=== PATIENT | female | born 1935 | race Caucasian/White ===

== ENCOUNTER 2017-03-07 14:33 | Emergency (ER) | payer OTHER ==
[2017-03-07 15:09] VITALS: TEMP 98.1; BMI 29.2
[2017-03-07] MEDS ORDERED: DIPHTH,PERTUSS(ACELL),TET VAC 0.5 ML VIAL IM ONE (15:27)
--- NOTE | 2017-03-07 15:27 | PDOC ---
History of Present Illness - General History Source: Patient Exam Limitations: No Limitations - History of Present Illness Initial Comments: 03/07/17 15:36 The patient is a 81 year old female, with a significant past medical history of hypertension and hyperlipidemia, who presents to the emergency department s/p mechanical fall earlier this afternoon. The patient reports she was on the sidewalk about to cross the street, when she slipped, fell, and scraped her face. The patient reports bleeding at the site where she scraped her nose. She does not report how long she was down for or how she was able to get up. The patient denies any LOC or changes in vision. The patient does not report any other signs of trauma. The patient denies any chest pain, shortness of breath, diaphoresis, or palpitations. The patient denies any fever, chills, headache, or dizziness. The patient denies any recent travel or sick contacts. Allergies: None Reported Past Surgical History: None reported Social History: Non-smoker. No ETOH or drug use <Rafael Reinoso - Last Filed: 03/07/17 16:24> <Rima Carter - Last Filed: 03/07/17 17:58> - General Chief Complaint: Injury Stated Complaint: FALL Time Seen by Provider: 03/07/17 14:52 Past History <Rafael Reinoso - Last Filed: 03/07/17 16:24> - Past Medical History HTN: Yes Hypercholesterolemia: Yes - Psycho/Social/Smoking Cessation Hx Anxiety: No Suicidal Ideation: No Smoking History: Never smoked Have you smoked in the past 12 months: No Information on smoking cessation initiated: No Hx Alcohol Use: No Drug/Substance Use Hx: No Substance Use Type: None <Rima Carter - Last Filed: 03/07/17 17:58> - Past Medical History Allergies/Adverse Reactions: Allergies Allergy/AdvReac Type Severity Reaction Status Date / Time No Known Allergies Allergy Verified 03/07/17 15:04 Home Medications: Ambulatory Orders Amox-Tr/K Cl [Augmentin - 875Mg Tablet] 1 tab PO BID #14 tablet 03/07/17 Review of Systems - Review of Systems Able to Perform ROS?: Yes Comments:: 03/07/17 15:36 GENERAL/CONSTITUTIONAL: Yes: +mechanical fall. No fever or chills. HEAD, EYES, EARS, NOSE AND THROAT: Yes: +scrape to the nose and forehead. No change in vision. No ear pain or discharge. No sore throat. CARDIOVASCULAR: No chest pain or shortness of breath. RESPIRATORY: No cough, wheezing, or hemoptysis. GASTROINTESTINAL: No nausea, vomiting, diarrhea or constipation. GENITOURINARY: No dysuria, frequency, or change in urination. MUSCULOSKELETAL: No joint or muscle swelling or pain. No neck or back pain. SKIN: Yes: +scrape to the nose and forehead. No rash NEUROLOGIC: No headache, vertigo, loss of consciousness, or change in strength/ sensation. ENDOCRINE: No increased thirst. No abnormal weight change. HEMATOLOGIC/LYMPHATIC: No anemia, easy bleeding, or history of blood clots. ALLERGIC/IMMUNOLOGIC: No hives or skin allergy. <Rafael Reinoso - Last Filed: 03/07/17 16:24> *Physical Exam - Vital Signs Last Vital Signs Temp Pulse Resp BP Pulse Ox 98.1 F 103 H 21 156/73 98 03/07/17 14:51 03/07/17 14:51 03/07/17 14:51 03/07/17 14:51 03/07/17 14:51 <Rafael Reinoso - Last Filed: 03/07/17 16:24> - Vital Signs Last Vital Signs Temp Pulse Resp BP Pulse Ox 98.1 F 103 H 21 156/73 98 03/07/17 14:51 03/07/17 14:51 03/07/17 14:51 03/07/17 14:51 03/07/17 14:51 - Physical Exam Comments: GENERAL: Awake, alert, and fully oriented, in no acute distress HEAD: +Large abrasion with skin avulsion to the nasal bridge. No active bleeding. No bony tenderness EYES: PERRLA, EOMI, sclera anicteric, conjunctiva clear ENT: Auricles normal inspection, hearing grossly normal, nares patent, oropharynx clear without exudates. Moist mucosa NECK: Normal ROM, supple, no lymphadenopathy, JVD, or masses EXTREMITIES: Normal range of motion, no edema. No clubbing or cyanosis. No cords, erythema, or tenderness NEUROLOGICAL: Cranial nerves II through XII grossly intact. Normal speech, normal gait SKIN: Warm, Dry, normal turgor. <Rima Carter - Last Filed: 03/07/17 17:58> ED Treatment Course - RADIOLOGY Radiograph Interpretation: 03/07/17 16:24 EXAM: X-Ray Nasal bones INTERPRETED BY: Dr. Graham REVIEWED BY: Dr. Carter IMPRESSION: Suboptimal examination. Questionable nondisplaced fracture at the tip of the nasal bones seen on the left lateral view. <Rafael Reinoso - Last Filed: 03/07/17 16:24> Medical Decision Making - Medical Decision Making 03/07/17 17:57 Pt's daughter at the bedside, arrived to pick her up. I explained the radiology findings, and that an antibiotic will be necessary to prevent infection in light of possible small fx. They gave me pharmacy information so I was able to transmit it. I also explained how to care for the wound as I did- xeroform, gauze, and tape. <Rima Carter - Last Filed: 03/07/17 17:58> *DC/Admit/Observation/Transfer - Attestations Scribe Attestion: 03/07/17 15:36 Documentation prepared by Rafael Reinoso, acting as medical psychotherapist for Rima Carter MD. <Rafael Reinoso - Last Filed: 03/07/17 16:24> - Discharge Dispostion Admit: No <Rima Carter - Last Filed: 03/07/17 17:58> Diagnosis at time of Disposition: Nose fracture Qualifiers: Encounter type: initial encounter Fracture type: open Qualified Code(s): S02.2XXB - Fracture of nasal bones, initial encounter for open fracture - Discharge Dispostion Disposition: HOME Condition at time of disposition: Stable - Prescriptions Prescriptions: Amox-Tr/K Cl [Augmentin - 875Mg Tablet] 1 tab PO BID #14 tablet - Referrals Referrals: Clive Rocha MD [Staff Physician] - - Patient Instructions Printed Discharge Instructions: DI for Nose Fracture
[2017-03-07 18:40] VITALS: BP 155/81; PULSE 99
== END 2017-03-07 17:50 | disposition home or self-care (01) ==
LOC: JER 14:33
PROC: 3E0234Z Introduction of Serum, Toxoid and Vaccine into Muscle, Percutaneous Approach (ICD-10-PCS; principal; 2017-03-07)
DX: S02.2XXA Fracture of nasal bones, initial encounter for closed fracture (principal); W01.198A Fall on same level from slipping, tripping and stumbling with subsequent striking against other object, initial encounter; Y93.01 Activity, walking, marching and hiking; Y92.480 Sidewalk as the place of occurrence of the external cause; I10 Essential (primary) hypertension; E78.5 Hyperlipidemia, unspecified
CPT/HCPCS: 70160-TC; 99281-25

== ENCOUNTER 2019-05-02 10:09 | Inpatient (IN) | payer OTHER | END 2019-05-06 11:36 | LOC: J5S 05-04 14:43 → JER 10:09 → J4W 05-03 17:32 → JERBED 14:13 ==

== ENCOUNTER 2019-07-30 09:50 | Inpatient (IN) | payer OTHER ==
[2019-07-30] MEDS ORDERED: ACETAMINOPHEN 1000 MG/100 ML VIAL (NON FORMULARY) IVPB ONE (10:21)
[2019-07-30] MEDS ORDERED: ACETAMINOPHEN INJECTION 100 ML IVPB ONE (10:56)
[2019-07-30 11:22] LABS: BASO % 0.3 % (0-2.0); HEMOGLOBIN 11.1 GM/dL (10.7-15.3); LYMPH % 5.4 % (8-40); MCH 31.8 pg (25.7-33.7); MCHC 33.5 g/dl (32.0-36.0); MEAN CELL VOLUME 94.7 fl (80-96); MEAN PLT VOLUME 9.6 fl (7.5-11.1); MONO % 17.2 % (3.8-10.2); NEUT % 77.1 % (42.8-82.8); PLATELET COUNT 87 K/MM3 (134-434); RBC 3.48 M/mm3 (3.60-5.2)
[2019-07-30 11:59] LABS: ALBUMIN 3.7 g/dl (3.4-5.0); BILIRUBIN,TOTAL 0.9 mg/dL (0.2-1); BLOOD UREA NITROGEN 9.8 mg/dL (7-18); CALCIUM 9.1 mg/dL (8.5-10.1); CREATININE 0.6 mg/dL (0.55-1.3); POTASSIUM 4.1 mmol/L (3.5-5.1); TOT PROT 8.4 g/dl (6.4-8.2)
[2019-07-30] MEDS ORDERED: morphine CARPU-JECT 4 MG/1 ML DISP.SYRIN IVPUSH ONE (12:13)
--- NOTE | 2019-07-30 12:18 | PDOC ---
Documentation entered by Manuel Merino SCRIBE, acting as scribe for Yandy Lawton MD. Yandy Lawton MD: This documentation has been prepared by the Angelique hernandez Xhesika, SCRIBE, under my direction and personally reviewed by me in its entirety. I confirm that the documentation accurately reflects all work, treatment, procedures, and medical decision making performed by me. History of Present Illness - General Chief Complaint: Injury Stated Complaint: FALL Time Seen by Provider: 07/30/19 10:04 History Source: Patient Exam Limitations: No Limitations - History of Present Illness Initial Comments: 07/30/19 10:22 The patient is a 84 year old female with a significant past medical history of cognitive decline, dementia and depression, DVT on coumadin? who presents to the ED BIBA with 10/10 L hip pain s/p fall at 12:00am, unable to move 2/2 pain. Patient notes she lives at home alone, was going to the bathroom and fell last night approx 12am. Patient denies hitting her head or LOC. per records, ASA 81 mg po daily. pt is DNR/DNI. coumadin information provided upon talking to daughter, Ms Donald). Patient denies numbness/tingling on legs and arms. Denies fever, chills, chest pain, SOB, palpitation, dizziness, weakness, N, V, D , abdominal pain, bladder and bowel problems, leg swelling, No sick contacts or travel. No new changes in medications. Allergies: None Past Medical History: as per HPI Social history: Lives alone at home. No tobacco, ETOH or drug use. Surgical history: hernia repair 2017 Meds: as documented in EMR PMD: Dr. Juárez 07/30/19 12:15 07/30/19 13:15 07/30/19 13:18 Past History - Past Medical History Allergies/Adverse Reactions: Allergies Allergy/AdvReac Type Severity Reaction Status Date / Time morphine Allergy Itching Verified 07/30/19 12:56 Home Medications: Ambulatory Orders Escitalopram Oxalate [Lexapro -] 10 mg PO HS 05/02/19 Acetaminophen [Tylenol .Regular Strength -] 650 mg PO Q4H PRN tablet 05/06/19 Aspirin [ASA -] 81 mg PO DAILY #0 tab.chew 05/06/19 COPD: No Dementia: Yes HTN: Yes Hypercholesterolemia: Yes - Psycho Social/Smoking Cessation Hx Smoking History: Unknown if ever smoked Have you smoked in the past 12 months: No If you are a former smoker, when did you quit?: 30years ago Information on smoking cessation initiated: No Hx Alcohol Use: No Drug/Substance Use Hx: No Substance Use Type: None Hx Substance Use Treatment: No Review of Systems - Review of Systems Able to Perform ROS?: Yes Comments:: 07/30/19 10:25 Constitutional: no fevers or chills. No weakness HEENT: no headache or dizziness. No congestion. No visual/hearing disturbances. CVS: no cp or syncope. Resp: no sob. No cough. Gastrointestinal: no abdominal pain, nausea, vomiting, diarrhea. Genitourinary: no urinary sx, hematuria. MUSCULOSKELETAL: +L hip pain. No joint swelling. No neck or back pain. SKIN: no redness or skin changes, no discharge, no rash. No wounds. Hematologic: no easy bruising/bleeding. NEUROLOGIC: No headache, dizziness, LOC or altered mental status. No weakness, numbness or tingling. Psych: no anxiety or depression Allergic/Immunologic: no allergies All other systems reviewed and negative, or as documented in HPI. *Physical Exam - Vital Signs Last Vital Signs Temp Pulse Resp BP Pulse Ox 97.4 F L 77 16 167/68 100 07/30/19 09:55 07/30/19 09:55 07/30/19 09:55 07/30/19 09:55 07/30/19 09:55 - Physical Exam Comments: 07/30/19 10:23 General: GCS 15 NAD HEENT: NCAT, PERRL, EOMI. Airway intact. No battles sign or raccoon eyes. No e/ o ocular. Dentition intact. No e/o septal hematoma, nasal bridge stable. Neck: neck supple, no midline C spine tenderness or deformity, ROM intact. No anterior mass or crepitus, trachea midline. Resp: Lungs clear bilaterally Chest: no clavicle or chest wall tenderness or crepitus CVS: RRR, 2+ pulses throughout. Abdomen: Abdomen soft, nontender, nondistended. Back: Back nontender, no midline spinal tenderness along cervical/thoracic/ lumbar spine, FROM, no stepoffs. MSK: +left lower extremity externally shortened and rotated. very tender to palp over left lateral/anterior hip, ROM limited 2/2 pain. Neuro: Alert, oriented appropriately. slow mentation/speech. no focal neuro deficits. Sensation and strength intact throughout. Skin: intact, normal color and well perfused. 07/30/19 12:16 Heart Score/ECG Review #1 ECG reviewed & interpreted by me at: 11:45 General ECG Interpretation: Sinus Rhythm, Normal Rate, Normal Intervals Compared to previous ECG there are: No significant change ED Treatment Course - LABORATORY CBC & Chemistry Diagram: 07/30/19 10:45 07/30/19 10:45 - ADDITIONAL ORDERS Additional order review: Laboratory Results 07/30/19 07/30/19 10:45 10:45 Sodium 137 Potassium 4.1 Chloride 101 Carbon Dioxide 28 Anion Gap 9 BUN 9.8 Creatinine 0.6 Est GFR (CKD-EPI)AfAm 98.38 Est GFR (CKD-EPI)NonAf 84.88 Random Glucose 155 H Calcium 9.1 Total Bilirubin 0.9 AST 26 ALT 15 Alkaline Phosphatase 82 Creatine Kinase 456 H Troponin I < 0.02 Total Protein 8.4 H Albumin 3.7 07/30/19 10:45 RBC 3.48 L MCV 94.7 MCHC 33.5 RDW 17.0 H MPV 9.6 Neutrophils % 77.1 D Lymphocytes % 5.4 L D Monocytes % 17.2 H Eosinophils % 0.0 D Basophils % 0.3 - RADIOLOGY Radiology Studies Ordered: Category Date Time Status CERVICAL SPINE CT W/O CONTR [CT] Stat CT Scan 07/30/19 10:[address] WITHOUT CONTRAST [CT] Stat CT Scan 07/30/19 10:17 Ordered CHEST X-RAY PORTABLE* [RAD] Stat Radiology 07/30/19 10:18 Completed HIP & PELVIS-LEFT [RAD] Stat Radiology 07/30/19 10:20 Completed - Medications Given in the ED: ED Medications Discontinued Medications Generic Name Dose Route Start Last Admin Trade Name Freq PRN Reason Stop Dose Admin Acetaminophen 1,000 mg 07/30/19 10:21 07/30/19 11:15 Ofirmev Injection - IVPB 07/30/19 10:22 1,000 mg ONCE ONE Administration ED Progress Note - Progress Note Progress Note: 07/30/19 12:58 Pt admitted to hospitalist under Dr. norris. Spoke with MARIANO Nova (Dr. Frias office), discussed plan and he will come see the patient. Medical Decision Making - Medical Decision Making 07/30/19 12:17 Vital Signs Temp Pulse Resp BP Pulse Ox 97.4 F L 77 16 167/68 100 07/30/19 09:55 07/30/19 09:55 07/30/19 09:55 07/30/19 09:55 07/30/19 09:55 Patient after unwitnessed fall last night, clinically has a left hip fracture. X-rays confirmed left intertrochanteric fracture. Neurovascularly intact. Will call orthopedics on-call Dr. Ledesma/Rodriguez. Admit to hospitalist for medical/operative management. Analgesia given here, will offer patient femoral nerve block for additional analgesia given she could have risks of delirium with her cognitive decline/dementia. Will consult the daughter and make a phone call out. 07/30/19 13:31- pt has allergy to morphine, gets flushed and itchy/rash. - ramirez placed, UA/culture sent to check for infection daughter Arleen Donald updated. apparently pt is on ASA and coumadin, for ?DVT. prior records reviewed from April 2019 - only asa and antidepressants at that time, when she was admitted for encephalopathy/dementia. INR 3.48. no femoral block as risk of bleeding given AC use. [facility] to [facility] team accepted and s/o Dr Palencia. ortho cs with Dr Ledesma/Rodriguez, information passed to Alfonso Nova 07/30/19 14:49 Discharge - Discharge Information Problems reviewed: Yes Clinical Impression/Diagnosis: Intertrochanteric fracture of left hip Qualifiers: Encounter type: initial encounter Fracture type: closed Fracture alignment: displaced Qualified Code(s): S72.142A - Displaced intertrochanteric fracture of left femur, initial encounter for closed fracture Fall Qualifiers: Encounter type: initial encounter Qualified Code(s): W19.XXXA - Unspecified fall, initial encounter Condition: Fair - Admission Yes - Follow up/Referral - Patient Discharge Instructions - Post Discharge Activity
[2019-07-30] MEDS ORDERED: morphine SULFATE 4 MG/ML VIAL ONE (12:43)
--- NOTE | 2019-07-30 13:09 | HP ---
<Clive Landon - Last Filed: 07/31/19 00:25> CHIEF COMPLAINT: Hip Pain PCP: Dr. Juárez HISTORY OF PRESENT ILLNESS: 84yo F with h/o cognitive decline and severe dementia, depression, DVT ( May 2019) on Coumadin who presents today after unwitnessed fall with high suspicion for mechanical etiology. Pt was brought in by ambulance and found on the floor when aide showed up for her regularly scheduled hours. Unknown amount of time on the floor. HPI is limited due to pt's clinical condition, but spoke to aide at bedside who reports pt seems to be at her baseline mentation. Pt reports pain near L leg with localization in groin. Aide reports pt is partially dependent at home. Spoke with daughter (Fatemeh [phone]) who confirmed updated list and who reports pt is usually kept with minimal assist for ADLs. HPI limited due to pt's historic conditions. 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 Noncontributory. Allergies morphine Allergy (Verified 07/30/19 12:56) Itching HOME MEDICATIONS: Home Medications Medication Instructions Recorded Escitalopram Oxalate [Lexapro -] 10 mg PO HS 05/02/19 Acetaminophen [Tylenol .Regular 650 mg PO Q4H PRN tablet 05/06/19 Strength -] Aspirin [ASA -] 81 mg PO DAILY #0 tab.chew 05/06/19 REVIEW OF SYSTEMS Limited due to clinical conditions; see HPI PHYSICAL EXAMINATION Vital Signs - 24 hr 07/30/19 09:55 Temperature 97.4 F L Pulse Rate 77 Respiratory 16 Rate Blood Pressure 167/68 O2 Sat by Pulse 100 Oximetry (%) GENERAL: Awake, alert, oriented to self only, has to be prompted for response HEENT: Nc/AT, FIFI, sclera anicteric, masked facies, dry mucosa LUNGS: Diminished breath sounds at bases b/l. No wheezes, and no crackles. No accessory muscle use. HEART: RRR, normal S1 and S2 without murmur ABDOMEN: Soft, NT/ND, normoactive bowel sounds, no guarding MUSCULOSKELETAL: Externally rotated left leg with notable leg-length discrepancy , aROM of foot intact LOWER EXTREMITIES: 2+ DP pulses b/l, warm, well-perfused. No calf tenderness. No peripheral edema. NEUROLOGICAL: Limited due to pt's clinical status. PSYCHIATRIC: Cooperative. Good eye contact. Appropriate mood and affect. SKIN: Warm, dry, normal turgor, no rashes or lesions noted, normal capillary refill. Laboratory Results - last 24 hr 07/30/19 07/30/19 07/30/19 10:45 10:45 10:45 WBC 12.0 H RBC 3.48 L Hgb 11.1 Hct 33.0 D MCV 94.7 MCH 31.8 MCHC 33.5 RDW 17.0 H Plt Count 87 L D MPV 9.6 Absolute Neuts (auto) 9.3 H Neutrophils % 77.1 D Lymphocytes % 5.4 L D Monocytes % 17.2 H Eosinophils % 0.0 D Basophils % 0.3 Nucleated RBC % 0 Sodium Potassium Chloride Carbon Dioxide Anion Gap BUN Creatinine Est GFR (CKD-EPI)AfAm Est GFR (CKD-EPI)NonAf Random Glucose Calcium Total Bilirubin AST ALT Alkaline Phosphatase Creatine Kinase 456 H Creatine Kinase Index 1.1 CK-MB (CK-2) 5.4 H Troponin I < 0.02 Total Protein Albumin Blood Type O NEGATIVE Antibody Screen Negative 07/30/19 10:45 WBC RBC Hgb Hct MCV MCH MCHC RDW Plt Count MPV Absolute Neuts (auto) Neutrophils % Lymphocytes % Monocytes % Eosinophils % Basophils % Nucleated RBC % Sodium 137 Potassium 4.1 Chloride 101 Carbon Dioxide 28 Anion Gap 9 BUN 9.8 Creatinine 0.6 Est GFR (CKD-EPI)AfAm 98.38 Est GFR (CKD-EPI)NonAf 84.88 Random Glucose 155 H Calcium 9.1 Total Bilirubin 0.9 AST 26 ALT 15 Alkaline Phosphatase 82 Creatine Kinase Creatine Kinase Index CK-MB (CK-2) Troponin I Total Protein 8.4 H Albumin 3.7 Blood Type Antibody Screen ASSESSMENT/PLAN: L intertrochanteric hip fracture DVT on anticoagulation Supratherapeutic INR Rhabdomyolysis Thrombocytopenia Leukocytosis Severe dementia leading to cognitive decline Depression --Unwitnessed fall leading to intertrochanteric hip fracture --Orthopedic surgery on board; will need repair, however will need optimization and decrease of INR <1.4 for pt's surgery --Pain control (allergy to morphine unclear via funeral home director); distal nerve block initially vs. Tylenol 1gm QID PRN --Pt supratherapeutic INR: trend INRs and surgery to be performed with INR <1.4 --Due to ongoing DVT will have to use Heparin gtt if pt becomes below goal prematurely; will have to stop 6 hours prior to surgery --Monitor for bleeding and hematoma formation --If not diminishing may have to supplement with vitamin K, however must weigh risk given already coagulopathy present --Surgical optimization: Diaz score 1.6% MANNY RCR score 3.9 - 6.0% Mod-high risk patient for moderate risk procedure based on Mets and surgical procedure --Will obtain A1c with routine labs --Type and screen --CXR reviewed --ECG reviewed; echocardiogram ordered --Thrombocytopenia with possible consumption --Leukocytosis suspected to be reactive --Continue Lexapro home dose FEN: Fluids: LR@83cc/hr due to pt frailty Electrolyte abnormalities: None Nutrition: Speech and swallow and advance per recommendations PPX: DVT - Supratherapeutic INR GI - Not indicated Dispo: monitor M/S admit Case discussed with Dr. Dilip Landon, DO - IM PGY-3 Visit type - Emergency Visit Emergency Visit: Yes ED Registration Date: 07/30/19 Care time: The patient presented to the Emergency Department on the above date and was hospitalized for further evaluation of their emergent condition. - New Patient This patient is new to me today: Yes Date on this admission: 07/30/19 - Critical Care Critical Care patient: No ATTENDING PHYSICIAN STATEMENT I saw and evaluated the patient. I reviewed the resident's note and discussed the case with the resident. I agree with the resident's findings and plan as documented. SUBJECTIVE: OBJECTIVE: ASSESSMENT AND PLAN: <Obed Cherry - Last Filed: 07/31/19 07:59> Seen and examined; please refer to resident note for additional discussion. Independently reviewed all labs, imaging, and diagnositcs and verified historical and PE findings. I agree with the assessment and plan as documented above aside from as supplemented by myself. Presents following mechanical fall resulting in IC hip fx confirmed on XR done in ER; pain control being done with US guided nerve block but ST INR just confirmed so ER is in process of reevaluating-will FU. She has likely underlying neuro disorder (parkinsons vs. alzheimers vs. corticobasilar degeneration?) and will discuss with neuro; recent MRI and consult noted. Dysarthria, rigidity, cogwheeling noted on exam. 10 sys ROS done and negative aside from HPI NAD, AAO, resting in bed NC AT PERRLA Hip painful to palpation over trochanteric region with external rotation and shortening relative to contralateral side noted NT ND +BS Muscle rigidity RUE>LUE with some cogwheeling noted. Dysarthric speech pattern. Gait not observed. Normal mood, flat affect HR wnl, s1/2 noted Neck without lymphadenopathy, trachea midline Skin without rashes or breakdown EKG, XR noted Old MRI study noted Old Neurology consultation noted ASSESSMENT/PLAN: Patient presents for intertrochanteric hip fracture due to mechanical fall; I am concerned about her underlying neurological condition that may have contributed to a gait distubance with concurring dysarthria, rigidity, etc. Orthopedic consult and neuro consult pending. Will work to control pain. -Intertrochanteric Hip Fracture *Dr. Ledesma consulted; followup regarding pain control and operative planning. FU INR in AM. 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 OP followup with DEXA, vitamin D, etc. -Mechanical Fall *Likely related to underlying neurological condition -Hx DVT on warfarin -Elevated CPK *Not at rhabdo levels but did have fall with elevated time on ground. Closely monitor CPK and renal function along with Is and Os. -Thrombocytopenia *Trend; check HCV Ab and HIV and consider hematology consult -Dementia *She likely cannot consent for procedure and this should be done with her HCP Full Code ATTENDING PHYSICIAN STATEMENT I saw and evaluated the patient. I reviewed the resident's note and discussed the case with the resident. I agree with the resident's findings and plan as documented. SUBJECTIVE: OBJECTIVE: ASSESSMENT AND PLAN:
[2019-07-30] MEDS: LACTATED RINGERS SOLUTION 1,000 ML/1,000 ML INFUS.BAG IV SCH (13:50)
[2019-07-30 14:12] LABS: EPI CELLS 0.8 /HPF (0-5/HPF); HYALINE CASTS 3 /lpf (0-8); PH,URINE 6.5 (5.0-8.0); URINE APPEARANCE CLOUDY; URINE BILIRUBIN NEGATIVE (NEGATIVE); URINE COLOR YELLOW; URINE GLUCOSE (UA) NEGATIVE (NEGATIVE); URINE KETONE NEGATIVE (NEGATIVE); URINE LEUK ESTERASE 1+ (NEGATIVE); URINE NITRITE NEGATIVE (NEGATIVE); URINE PROTEIN 1+ (NEGATIVE); URINE UROBILINOGEN 0.2 mg/dL (0.2-1.0); URINE WBC 151 /hpf (0-5)
--- NOTE | 2019-07-30 14:19 | EKG ---
Test Reason : Blood Pressure : / mmHG Vent. Rate : 075 BPM Atrial Rate : 075 BPM P-R Int : 156 ms QRS Dur : 062 ms QT Int : 396 ms P-R-T Axes : 057 052 076 degrees QTc Int : 442 ms POOR DATA QUALITY, INTERPRETATION MAY BE ADVERSELY AFFECTED NORMAL SINUS RHYTHM EARLY REPOLARIZATION WHEN COMPARED WITH ECG OF 02-MAY-2019 10:13, NO SIGNIFICANT CHANGE WAS FOUND Confirmed by LULA MOON MD ([id number]) on 07/30/2019 2:19:13 PM Referred By: Confirmed By:LULA MOON MD
[2019-07-30 14:34] LABS: INR 3.84 (0.83-1.09); PROTHROMBIN TIME (PATIENT) 45.9 SEC (9.7-13.0)
[2019-07-30 14:36] LABS: ACTIVATED PTT 61.2 SECONDS (25.2-36.5)
--- NOTE | 2019-07-30 15:00 | CON.ORTH ---
Consult Reason for Consultation:: left hip fx - Alcohol/Substance Use Hx Alcohol Use: No - Smoking History Smoking history: Unknown if ever smoked Have you smoked in the past 12 months: No If you are a former smoker, when did you quit?: 30years ago Home Medications - Allergies Allergies/Adverse Reactions: Allergies Allergy/AdvReac Type Severity Reaction Status Date / Time morphine Allergy Itching Verified 07/30/19 12:56 - Home Medications Home Medications: Ambulatory Orders Escitalopram Oxalate [Lexapro -] 10 mg PO HS 05/02/19 Acetaminophen [Tylenol .Regular Strength -] 650 mg PO Q4H PRN tablet 05/06/19 Aspirin [ASA -] 81 mg PO DAILY #0 tab.chew 05/06/19 Ascorbate Calcium [Vitamin C] 500 mg PO DAILY 07/30/19 Physical Exam for Ortho Vital Signs: Vital Signs Temperature 97.4 F L 07/30/19 09:55 Pulse Rate 76 07/30/19 13:20 Respiratory Rate 20 07/30/19 13:20 Blood Pressure 144/62 07/30/19 13:20 O2 Sat by Pulse Oximetry (%) 98 07/30/19 13:20 Labs: CBC, BMP 07/30/19 10:45 07/30/19 10:45 INR, PTT INR 3.84 (0.83-1.09) H 07/30/19 13:30 - Lower Extremity Hip: Yes: Left, Decreased ROM, Leg Externally Rotated, Leg Shortened, Pain, Swelling, Other (nvi) Imaging - Results X-ray: Image Reviewed Assessment/Plan 84 year old female with a significant past medical history of cognitive decline , dementia and depression, DVT on coumadin? who presents to the ED BIBA with 10 /10 L hip pain s/p fall at 12:00am, unable to move 2/2 pain. Patient notes she lives at home alone, was going to the bathroom and fell last night approx 12am. Patient denies hitting her head or LOC. per records, ASA 81 mg po daily. pt is DNR/DNI. coumadin information provided upon talking to daughter, Ms Donald). Currently pts INR is 3.84. Pt has prior h/o of dvt in May 2019. a/p left displaced IT fx Risks and benefits were d/w pt and her daughter Will need left IM gamma nail once INR to 1.4, and surgically cleared hold coumadin AC as per med/cardio OR once INR stabilized and medically cleared, earliest would be Friday d/w Dr. Frias
[2019-07-30 15:02] LABS: MAGNESIUM 1.8 mg/dL (1.8-2.4)
[2019-07-30 15:18] LABS: URINE RBC 7 /hpf (0-4); YEAST NONE SEEN (NEGATIVE)
[2019-07-30 15:41] VITALS: BMI 25.0
--- NOTE | 2019-07-30 16:40 | ECHO ---
Name: EFREM MORIN Exam:Adult Echocardiogram Study Date: 07/30/2019 02:09 PM Age: 84 yrs Height: 61 in Weight: 136 lb BSA: 1.6 m2 MMode/2D Measurements & Calculations IVSd: 0.73 cm Ao root diam: 2.1 cm LVIDd: 2.9 cm LA dimension: 2.7 cm LVIDs: 2.1 cm LVPWd: 0.64 cm EDV(Teich): 33.2 ml LVOT diam: 1.9 cm ESV(Teich): 14.9 ml RV S Parish: 10.0 cm/sec Doppler Measurements & Calculations MV E max pairsh: 75.7 cm/sec Ao V2 max: 150.9 cm/sec MV A max parish: 138.7 cm/sec Ao max P.1 mmHg MV E/A: 0.55 MV dec time: 0.22 sec RASHAD(V,D): 2.6 cm2 LV V1 max P.1 mmHg TR max parish: 234.1 cm/sec LV V1 max: 133.3 cm/sec TR max P.0 mmHg Med Peak E' Parish: 6.1 cm/sec Med E/e': 12.3 Lat Peak E' Parish: 6.3 cm/sec Lat E/e': 11.9 Left Ventricle Left ventricular systolic function is normal. Ejection Fraction = 55-60%. The transmitral spectral Do ppler flow pattern is suggestive of impaired LV relaxation. Right Ventricle The right ventricle is normal in size and function. Atria The left atrium is mildly dilated. Right atrial size is normal. Mitral Valve There is moderate mitral annular calcification. There is no mitral valve stenosis. There is no mitral regurgitation noted. Tricuspid Valve The tricuspid valve is normal in structure and function. There is mild tricuspid regurgitation. Aortic Valve There is mild to moderate aortic sclerosis.;. No hemodynamically significant valvular aortic stenosis . No aortic regurgitation is present. Pulmonic Valve The pulmonic valve is not well seen, but is grossly normal. There is no pulmonic valvular stenosis. Great Vessels The aortic root is normal size. Pericardium/Pleura There is no pericardial effusion. Interpretation Summary Left ventricular systolic function is normal. Ejection Fraction = 55-60%. The transmitral spectral Doppler flow pattern is suggestive of impaired LV relaxation. The right ventricle is normal in size and function. The left atrium is mildly dilated. There is moderate mitral annular calcification. There is mild tricuspid regurgitation. There is mild to moderate aortic sclerosis.; No hemodynamically significant valvular aortic stenosis. There is no pericardial effusion. MD Terence Ochoa 07/30/2019 04:40 PM
--- NOTE | 2019-07-30 16:45 | CONSULT ---
Admitting History and Physical - Past Medical History ...: No - Smoking History Smoking history: Former smoker Have you smoked in the past 12 months: No If you are a former smoker, when did you quit?: 30years ago - Alcohol/Substance Use Hx Alcohol Use: No History - Admission Reason For Visit: INTERTROCHANTERIC FRACTURE OF LEFT FEMUR - Hearing Hearing: Normal Speech Evaluation - Communication Primary Language: KHMER Secondary Language: GHANAIAN Communication: Yes: Simple Responses, Language Barrier Oral Expression Ability: Yes: Mild Impairment - Speech Production Dysarthria: Yes: Flaccid Apraxia: No Able to Make Needs Known: Yes: Mildly Impaired Intelligibility: Yes: Mildly Impaired (slow halting speech) - Speech Characteristics Voice Loudness: Mildly Soft/Quiet Voice Pitch: Yes: Limited Variation Voice Phonatory-based Quality: Yes: Normal Speech Pattern: Impaired (slow rate of speech in Arabic) Articulation: Yes: Precise Rate of Speech: Too Slow Voice, Other Observations: Yes: Mouth Breathing Voice Comment: Vocal quality is functional for the environment with speech parameters WNL. - Language/Auditory Comprehension Follows: Yes: 1 Stage Simple Commands (WFL) Observation: Able to respond to yes/no queries: Yes, Yes/No Confusion: No, Comprehends Conversational Speech: Yes, Benefits from Slow Speech: Yes, Benefits from Repetiton: Yes, Benefits from Increased Volume of Speech: Yes - Language/Verbal Expression Able to Respond to Simple Queries: Yes: WNL Able to Communicate Wants and Needs: Yes: Mildly Impaired (language barrier) Functional Communication Status: Yes: Mildly Impaired Aware of Errors: Yes Attempts to Correct Errors: Yes Use of Gestures: Yes Written Expression: Not examined Oral Expression: WFL but slow rate Reading Comprehension: Not examined Calculations: Not examined Attention: Yes: Minimal Impairment - Memory/Perception skilled nursing Memory: Yes: Mildly Impaired Short Term Memory: Yes: WNL - Swallow Evaluation/Bedside Assessment Current Nutritional Intake: NPO (pending swallow eval) Oral Secretions: Yes: WFL Tracheostomy Present: No Patient on Ventilator: No Dentition: Yes: Edentulous, Missing Teeth Facial Symmetry at Rest: Symmetrical Facial Symmetry on Retraction: Symmetrical Facial Movement: Controlled Sensation: Normal Facial Comment: features are WFL for speech and swallowing Jaw Position: Open at Rest Against Resistance Opening: Normal Against Resistance Closing: Normal Pucker Lips: Normal Lips, Comment: features are WFL for speech and swallowing Lingual Movement: Reduced Tip Elevation, Reduced Protrusion Lingual Speed of Movement: Reduced Lingual Movement Strgth Against Opposition: Normal Lingual Movement Characteristics: Normal Lingual Comment: Slow movement but features are WFL for speech and swallowing Soft Palate Description: Normal Color Hard Palate Description: Normal Color Bite Reflex: Present Velopharyngeal Movement: Normal Laryngeal Elevation: WFL Laryngeal Movement: Able to Palpate Needs Assistance: Yes Rate of Intake: Slow/Holding Bolus Size: Small Sensation: Bite Reflex Labial Seal: WFL Chewing: Impaired Oral Prep Time: Increased A-P Transit: WFL Pocketing: None Timing of Swallow: Delayed (2-3 second) Coughing/Throat Clear: No Change in Voice: No Other Findings/Remarks: 84 yo female seen for swallow eval to r/o dysphagia. Daughters present for this session and provided encouragement to complete the swallow evaluation. Pt is verbal (both Sami and Arabic), A&Ox2, somewhat cooperative. PMHX includes advance dementia, depression, DVT. Admitted to [facility] for left hip pain secondary to fall at home. ART HISTORY PROFESSOR unable to formally evaluate oral / facial structure secondary to altered mental status, advanced dementia, Informal assessment of the oral / facial features appears within functional limits for speech and swallowing purposes. Current diet: NPO Pt given PO trials of pureed, soft regular solids with assistance revealed, reduced acceptance, delayed bolus formation increased mastication time and adequate A P transport. Pharyngeal swallows are delayed 2-4 seconds average No change in voicing or respiration after the swallow. Pt given PO trials of ice chips via spoon, thin liquids via cup and straw with total assistance revealed good acceptance, adequate labial containment / bolus control and, A P transport. Pharyngeal swallows are delayed 2-4 seconds average No change in voicing or respiration after the swallow. Recommendations - Speech Evaluation, Impression/Plan Impression: 84 yo female presents with mild to moderate amanda-pharyngeal dysphagia for soft regular solids with thin liquids. No evidence of aspiration observed with any consistency given at this time. Speech rate is delayed but is functional for her environment. Assisted Goals: Tolerate the least restrictive solid and liquid consistencies without s/s of penetration / aspiration. Short Term Goals: Tolerate purees and soft regular solid and thin liquid consistencies without s/s of penetration / aspiration. - Dysphagia Impressions/Plan Swallowing Skills: Impaired Dysphagia Impressions: Moderate Impairment, Risk of Aspiration *Silent aspiration: cannot be R/O at bedside Dysphagia Treatment Plan: Small Bites, Safe Rate, 1/2 tsp. at a time, Elevate HOB during feed, OOB for 1 h. after meals Dysphagia Evaluation Summary: : Continue po intake of soft regular solids with thin liquids at tolerated. Observe standard aspiration precautions. Provide oral care before and after meals. Provide oral care after meal. Medication can be given crushed with applesauce. Results given verbally to ore charger and PCP via chart. ART HISTORY PROFESSOR to follow up for diet tolerance. - Recommendations Diet Consistency: Regular, 1 - 2 Soft Items Medication Administration: Crushed with applesauce Liquids: Thin Liquids
--- NOTE | 2019-07-30 18:24 | CONSULT ---
Consult - text type - Consultation Consultation Note: NEUROLOGY CONSULTATION GREATLY APPRECIATED: Events reviewed. Pt examined with daughter at bedside who presents excellent history. This 84 yo RH woman lives alone. On Coumadin for prior history of DVT. INR= 3.84 8 year history of neurological decline, characterized by memory loss, prominent gait dysfunction (with tendency to fall backwards) and staring. Was in NH for UTI, now home with health aide 4 hours M-F. Walks with walker and assist. Daughter notes intermittent tremors in past. Admitted after fall with L hip fracture. For ORIF. Labs sig for WBC= 12K and Urine WBC= 131. BLANQUITA: No bruit. No head trauma. Cor reg. Neg Rikki's. L leg externally rotated and foreshortened (almost 3 cm) NEURO: Awake, alert, twisting her bedclothes. OX to "[facility]" 1919. But recalls "[facility]" and 2019 at 2 min. Dysarthric speech. Prominent glabella, snout, suck, grasps and palmomentals. CNII-CNXII: Prominent stare. Markedly reduced blink rate (3-4/min). No vertical EOM. No horizontal saccade. Pupils 4mm and reactive. Corneals +/+. Full vertical and horizontal movements with Doll's Head Maneuver. Reduced tongue mvts and gag. Motor: Diffusely rigid with cogwheeling. Markedly reduced PRISCILA's. Normal reflexes. Coordination: No obvious dystaxia. Sensation: Feels vibration and pin throughout. 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 Maybe worsened by Toxic-Metabolic Factors (UTI) Suggest: Antibiotics for UTI prior to ORIF Sequential compression stockings vs. DVT Consider heme consult and Vit K to reverse coumadin Aggressive bedside PT after ORIF. Possible levodopa trial post op. Feed cautiously while seated upright and observed. Thank you very much, Fabio Davis MD
[2019-07-30] MEDS: ESCITALOPRAM OXALATE 10 MG TABLET (FP) PO SCH (23:18)
--- NOTE | 2019-07-31 07:45 | PN ---
Physical Exam: SUBJECTIVE: Patient seen and examined; no new complaints. Hemodynamically stable and pain is controlled. recommendations noted. Appreciate expert care from subspecialty teams. No chest pain, SOB noted. Pending sgy. 10 sys ROS done and negative aside from HPI OBJECTIVE: Vital Signs Period Temp Pulse Resp BP Sys/Pierce Pulse Ox Last 24 Hr 97.4 F-98.2 F 74-81 16-20 127-167/58-80 98-100 GENERAL: The patient is awake, alert, and fully oriented, in no acute distress. HEAD: Normal with no signs of trauma. EYES: PERRL, extraocular movements intact, sclera anicteric, conjunctiva clear. No ptosis. ENT: Ears normal, nares patent, oropharynx clear without exudates, moist mucous membranes. NECK: Trachea midline, full range of motion, supple. LUNGS: Breath sounds equal, clear to auscultation bilaterally, no wheezes, no crackles, no accessory muscle use. HEART: Regular rate and rhythm, S1, S2 without murmur, rub or gallop. ABDOMEN: Soft, nontender, nondistended, normoactive bowel sounds, no guarding, no rebound, no hepatosplenomegaly, no masses. EXTREMITIES: 2+ pulses, warm, well-perfused, no edema. Neurovascularly intact on indicated extremity NEUROLOGICAL: Cranial nerves II through XII unchanged from prior exam. Dysarthric speech, gait not observed. Increased tone with cogwheeling. PSYCH: Normal mood, normal affect. SKIN: Warm, dry, normal turgor, no rashes or lesions noted Laboratory Results - last 24 hr 07/30/19 07/30/19 07/30/19 10:45 10:45 10:45 WBC 12.0 H RBC 3.48 L Hgb 11.1 Hct 33.0 D MCV 94.7 MCH 31.8 MCHC 33.5 RDW 17.0 H Plt Count 87 L D MPV 9.6 Absolute Neuts (auto) 9.3 H Neutrophils % 77.1 D Lymphocytes % 5.4 L D Monocytes % 17.2 H Eosinophils % 0.0 D Basophils % 0.3 Nucleated RBC % 0 ESR PT with INR INR PTT (Actin FS) Sodium Potassium Chloride Carbon Dioxide Anion Gap BUN Creatinine Est GFR (CKD-EPI)AfAm Est GFR (CKD-EPI)NonAf Random Glucose Hemoglobin A1c % Calcium Magnesium Total Bilirubin AST ALT Alkaline Phosphatase Ammonia Creatine Kinase 456 H Creatine Kinase Index 1.1 CK-MB (CK-2) 5.4 H Troponin I < 0.02 C-Reactive Protein Total Protein Albumin Vitamin B12 Serum Folate TSH Urine Color Urine Appearance Urine pH Ur Specific [place] Urine Protein Urine Glucose (UA) Urine Ketones Urine Blood Urine Nitrite Urine Bilirubin Urine Urobilinogen Ur Leukocyte Esterase Urine WBC (Auto) Urine RBC (Auto) Urine Casts (Auto) U Epithel Cells (Auto) Urine Bacteria (Auto) Urine Yeast (Auto) RPR Titer Blood Type O NEGATIVE Antibody Screen Negative 07/30/19 07/30/19 07/30/19 10:45 13:30 13:30 WBC RBC Hgb Hct MCV MCH MCHC RDW Plt Count MPV Absolute Neuts (auto) Neutrophils % Lymphocytes % Monocytes % Eosinophils % Basophils % Nucleated RBC % ESR PT with INR INR PTT (Actin FS) Sodium 137 Potassium 4.1 Chloride 101 Carbon Dioxide 28 Anion Gap 9 BUN 9.8 Creatinine 0.6 Est GFR (CKD-EPI)AfAm 98.38 Est GFR (CKD-EPI)NonAf 84.88 Random Glucose 155 H Hemoglobin A1c % Calcium 9.1 Magnesium Total Bilirubin 0.9 AST 26 ALT 15 Alkaline Phosphatase 82 Ammonia Creatine Kinase Creatine Kinase Index CK-MB (CK-2) Troponin I C-Reactive Protein Total Protein 8.4 H Albumin 3.7 Vitamin B12 Serum Folate Cancelled TSH Urine Color Yellow Urine Appearance Cloudy Urine pH 6.5 D Ur Specific [place] 1.014 Urine Protein 1+ H Urine Glucose (UA) Negative Urine Ketones Negative Urine Blood 2+ H Urine Nitrite Negative Urine Bilirubin Negative Urine Urobilinogen 0.2 Ur Leukocyte Esterase 1+ H Urine WBC (Auto) 151 Urine RBC (Auto) 7 Urine Casts (Auto) 3 U Epithel Cells (Auto) 0.8 Urine Bacteria (Auto) 3623.0 Urine Yeast (Auto) None seen RPR Titer Blood Type Antibody Screen 07/30/19 07/30/19 07/30/19 13:30 13:30 13:30 WBC RBC Hgb Hct MCV MCH MCHC RDW Plt Count MPV Absolute Neuts (auto) Neutrophils % Lymphocytes % Monocytes % Eosinophils % Basophils % Nucleated RBC % ESR PT with INR 45.90 H INR 3.84 H PTT (Actin FS) 61.2 H Sodium Potassium Chloride Carbon Dioxide Anion Gap BUN Creatinine Est GFR (CKD-EPI)AfAm Est GFR (CKD-EPI)NonAf Random Glucose Hemoglobin A1c % Calcium Magnesium 1.8 Total Bilirubin AST ALT Alkaline Phosphatase Ammonia 11.70 Creatine Kinase 444 H Creatine Kinase Index 1.5 CK-MB (CK-2) 7.1 H Troponin I C-Reactive Protein 10.3 H Total Protein Albumin Vitamin B12 675 Serum Folate 16 TSH 0.47 Urine Color Urine Appearance Urine pH Ur Specific [place] Urine Protein Urine Glucose (UA) Urine Ketones Urine Blood Urine Nitrite Urine Bilirubin Urine Urobilinogen Ur Leukocyte Esterase Urine WBC (Auto) Urine RBC (Auto) Urine Casts (Auto) U Epithel Cells (Auto) Urine Bacteria (Auto) Urine Yeast (Auto) RPR Titer Blood Type Antibody Screen 07/30/19 07/30/19 07/30/19 13:30 13:30 13:30 WBC RBC Hgb Hct MCV MCH MCHC RDW Plt Count MPV Absolute Neuts (auto) Neutrophils % Lymphocytes % Monocytes % Eosinophils % Basophils % Nucleated RBC % ESR 30 PT with INR INR PTT (Actin FS) Sodium Potassium Chloride Carbon Dioxide Anion Gap BUN Creatinine Est GFR (CKD-EPI)AfAm Est GFR (CKD-EPI)NonAf Random Glucose Hemoglobin A1c % Calcium Magnesium Total Bilirubin AST ALT Alkaline Phosphatase Ammonia Creatine Kinase Creatine Kinase Index CK-MB (CK-2) Troponin I C-Reactive Protein Cancelled Total Protein Albumin Vitamin B12 Serum Folate TSH Urine Color Urine Appearance Urine pH Ur Specific [place] Urine Protein Urine Glucose (UA) Urine Ketones Urine Blood Urine Nitrite Urine Bilirubin Urine Urobilinogen Ur Leukocyte Esterase Urine WBC (Auto) Urine RBC (Auto) Urine Casts (Auto) U Epithel Cells (Auto) Urine Bacteria (Auto) Urine Yeast (Auto) RPR Titer Nonreactive Blood Type Antibody Screen 07/30/19 07/30/19 19:02 19:02 WBC RBC Hgb Hct MCV MCH MCHC RDW Plt Count MPV Absolute Neuts (auto) Neutrophils % Lymphocytes % Monocytes % Eosinophils % Basophils % Nucleated RBC % ESR PT with INR INR PTT (Actin FS) Sodium Potassium Chloride Carbon Dioxide Anion Gap BUN Creatinine Est GFR (CKD-EPI)AfAm Est GFR (CKD-EPI)NonAf Random Glucose Hemoglobin A1c % 4.8 Calcium Magnesium Total Bilirubin AST ALT Alkaline Phosphatase Ammonia Creatine Kinase Creatine Kinase Index CK-MB (CK-2) Troponin I C-Reactive Protein Total Protein Albumin Vitamin B12 Serum Folate TSH Urine Color Urine Appearance Urine pH Ur Specific [place] Urine Protein Urine Glucose (UA) Urine Ketones Urine Blood Urine Nitrite Urine Bilirubin Urine Urobilinogen Ur Leukocyte Esterase Urine WBC (Auto) Urine RBC (Auto) Urine Casts (Auto) U Epithel Cells (Auto) Urine Bacteria (Auto) Urine Yeast (Auto) RPR Titer Blood Type O NEGATIVE Antibody Screen Active Medications Generic Name Dose Route Start Last Admin Trade Name Mane PRN Reason Stop Dose Admin Acetaminophen 1,000 mg 07/30/19 13:12 Ofirmev Injection - IVPB Q6H PRN PAIN LEVEL 6-10 Escitalopram Oxalate 10 mg 07/30/19 22:00 07/30/19 23:18 Lexapro - PO 10 mg HS YOUSIF Administration Lactated Ringer's 1,000 ml in 1,000 mls @ 83 mls/hr 07/30/19 13:15 07/30/19 13:50 Lactated Ringers Solution IV 83 mls/hr ASDIR YOUSIF Administration Dysphagia Evaluation Summary: : Continue po intake of soft regular solids with thin liquids at tolerated. Observe standard aspiration precautions. Provide oral care before and after meals. Provide oral care after meal. Medication can be given crushed with applesauce. Results given verbally to weigher and charger and PCP via chart. LEAD PERSON to follow up for diet tolerance. - Recommendations Diet Consistency: Regular, 1 - 2 Soft Items Medication Administration: Crushed with applesauce Liquids: Thin Liquids Old MRI reviewed; CT head reviewed; INR noted. ASSESSMENT/PLAN: Patient presents for intertrochanteric hip fracture and 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 -Intertrochanteric Hip Fracture *Dr. Ledesma consulted; per guidelines will repeat INR in AM as no STAT surgery or bleed is noted She is on warfarin for DVT and we will discuss heparinizing he preop with the orthopedic service. -Supratherapeutic INR *Discussed above -Progressive Supranuclear Palsy *This is an uncommon neurodegenerative disorder that causes imparment of balance, impaired eye movement, rigidity, dysarthria, and dysphagia. It mimics other items on the ddx including Parkinsons, Alzheimer disease, corticobasilar degeneration, and other neurodegerative disorders. Seen by Dr. Davis who agrees with postoperative trial of levadopa. 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 OP followup with DEXA, vitamin D, etc. -Mechanical Fall *Likely related to underlying neurological condition Full Code Visit type - Emergency Visit Emergency Visit: Yes ED Registration Date: 07/30/19 Care time: The patient presented to the Emergency Department on the above date and was hospitalized for further evaluation of their emergent condition. - New Patient This patient is new to me today: No - Critical Care Critical Care patient: No
[2019-07-31] MEDS ORDERED: CEFTRIAXONE 1 GM in DEXTROSE 5%-WATER 100 ML IVPB ONE (08:00)
[2019-07-31 09:15] LABS: HEMATOCRIT 26.9 % (32.4-45.2); HEMOGLOBIN 9.6 GM/dL (10.7-15.3); MCH 34.1 pg (25.7-33.7); MCHC 35.5 g/dl (32.0-36.0); MEAN CELL VOLUME 95.8 fl (80-96); MEAN PLT VOLUME 10.6 fl (7.5-11.1); PLATELET COUNT 97 K/MM3 (134-434); RBC 2.81 M/mm3 (3.60-5.2); RDW 17.2 % (11.6-15.6); WHITE BLOOD COUNT 9.8 K/mm3 (4.0-10.0)
[2019-07-31 09:39] LABS: BLOOD UREA NITROGEN 15.6 mg/dL (7-18); CREATININE 0.7 mg/dL (0.55-1.3); MAGNESIUM 1.8 mg/dL (1.8-2.4); POTASSIUM 3.7 mmol/L (3.5-5.1)
[2019-07-31] MEDS ORDERED: cefTRIAXone SODIUM 1 GM VIAL ONE (10:54)
[2019-07-31] MEDS ORDERED: DEXTROSE 5%-WATER 100 ML IVPB ONE (10:55)
[2019-07-31 13:24] LABS: INR 5.25 (0.83-1.09)
--- NOTE | 2019-07-31 17:17 | PN ---
Progress Note (short form) - Note Progress Note: Ortho Pt seen and examined s/p left IT fx, awaiting medical stabilization for OR Selected Entries 07/31/19 13:36 Temperature 98.4 F Pulse Rate 83 Respiratory 20 Rate Blood Pressure 127/57 L Laboratory Tests 07/31/19 07/31/19 07:40 07:40 WBC 9.8 Hgb 9.6 L Hct 26.9 L D Plt Count 97 L PT with INR 63.00 H INR 5.25 H* LLE- shortened and ER, + swelling, +ttp, dec rom, nvi a/p awaiting Hematology consult INR needs to be around 1.4 prior to OR Surgical clearance OR tentatively Friday if INR normalized NPO after midnight in case d/w Dr. Frias
--- NOTE | 2019-07-31 17:40 | CONSULT ---
Consult Consult Specialty:: Hematology - History of Present Illness Chief Complaint: Thrombocytopenia and prolonged INR History of Present Illness: 84y/o lady with h/o cognitive decline and severe dementia, depression, DVT ( May 2019) on Coumadin who was hospitalized after fall with new intertrochanteric fracture in need of surgery. Hematology is consulted due to prolonged INR on warfarin and thrombocytopenia. Pt is a limited historian. Denied bleeding, easy bruising black stools or history of known primary hematologic disorders - History Source History Provided By: Patient Limitations to Obtaining History: Poor Historian - Past Medical History ...: No - Alcohol/Substance Use Hx Alcohol Use: No - Smoking History Smoking history: Former smoker Have you smoked in the past 12 months: No If you are a former smoker, when did you quit?: 30years ago Home Medications - Allergies Allergies/Adverse Reactions: Allergies Allergy/AdvReac Type Severity Reaction Status Date / Time morphine Allergy Itching Verified 07/30/19 12:56 - Home Medications Home Medications: Ambulatory Orders Escitalopram Oxalate [Lexapro -] 10 mg PO HS 05/02/19 Acetaminophen [Tylenol .Regular Strength -] 650 mg PO Q4H PRN tablet 05/06/19 Aspirin [ASA -] 81 mg PO DAILY #0 tab.chew 05/06/19 Ascorbate Calcium [Vitamin C] 500 mg PO DAILY 07/30/19 Ferrous Sulfate 325 mg PO DAILY 07/30/19 Menthol [Bengay Ultra Strength] 1 each TP DAILY 07/30/19 Sennosides [Senna] 2 tab PO DAILY 07/30/19 Warfarin Sodium [Coumadin] 3 mg PO DAILY 07/30/19 Zinc Sulfate [Orazinc] 220 mg PO DAILY 07/30/19 Review of Systems - Review of Systems Constitutional: reports: No Symptoms Eyes: reports: No Symptoms HENT: reports: No Symptoms Neck: reports: No Symptoms Cardiovascular: reports: No Symptoms Respiratory: reports: No Symptoms Gastrointestinal: reports: No Symptoms Genitourinary: reports: No Symptoms Musculoskeletal: reports: No Symptoms Integumentary: reports: No Symptoms Neurological: reports: No Symptoms Endocrine: reports: No Symptoms Hematology/Lymphatic: reports: No Symptoms Psychiatric: reports: No Symptoms Physical Exam Vital Signs: Vital Signs Temperature 98.4 F 07/31/19 13:36 Pulse Rate 83 07/31/19 13:36 Respiratory Rate 20 07/31/19 13:36 Blood Pressure 127/57 L 07/31/19 13:36 O2 Sat by Pulse Oximetry (%) 98 07/30/19 13:20 Constitutional: Yes: No Distress Eyes: Yes: Other HENT: Yes: WNL Cardiovascular: Yes: S1, S2 Respiratory: Yes: Regular, CTA Bilaterally Gastrointestinal: Yes: WNL, Normal Bowel Sounds ...Rectal Exam: Yes: Deferred Musculoskeletal: Yes: Other Neurological: Yes: Other Psychiatric: Yes: Other Labs: CBC, BMP 07/31/19 07:40 07/31/19 07:40 Problem List - Problems (1) Thrombocytopenia Code(s): D69.6 - THROMBOCYTOPENIA, UNSPECIFIED (2) Prolonged INR Code(s): R79.1 - ABNORMAL COAGULATION PROFILE Assessment/Plan 84 y/o lady with interthrochanteric fracture needing surgical repair with prolonged INR on warfarin and thrombocytopenia. Recommend: 1) Hold Warfarin and monitor daily PT/INR. If elevated tomorrow consider low dose of vitamin K or continue to wait. If emergency surgery required reverse INR with 4 factor PCC (Prothrombin Complex Concentrate) or FFP. 2) Thrombocytopenia: Improving. No overt sepsis so doubt DIC. Possible medication effect but mild and self resolving so consider to monitor. 3) Thank you for this consultation.
[2019-07-31] MEDS: ESCITALOPRAM OXALATE 10 MG TABLET (FP) PO SCH (20:59)
[2019-07-31] MEDS: ACETAMINOPHEN 1000 MG/100 ML VIAL (NON FORMULARY) IVPB PRN (20:59)
[2019-07-31] MEDS: LACTATED RINGERS SOLUTION 1,000 ML/1,000 ML INFUS.BAG IV SCH (21:37)
[2019-08-01] MEDS: LACTATED RINGERS SOLUTION 1,000 ML/1,000 ML INFUS.BAG IV SCH ×2 (06:29→16:11)
[2019-08-01 07:45] LABS: HEMATOCRIT 26.3 % (32.4-45.2); HEMOGLOBIN 8.9 GM/dL (10.7-15.3); MCH 32.4 pg (25.7-33.7); MEAN CELL VOLUME 95.2 fl (80-96); MEAN PLT VOLUME 10.5 fl (7.5-11.1); PLATELET COUNT 92 K/MM3 (134-434); RBC 2.76 M/mm3 (3.60-5.2); RDW 17.3 % (11.6-15.6); WHITE BLOOD COUNT 9.7 K/mm3 (4.0-10.0)
[2019-08-01 07:54] LABS: INR 3.66 (0.83-1.09); PROTHROMBIN TIME (PATIENT) 43.8 SEC (9.7-13.0)
[2019-08-01 08:22] LABS: ALBUMIN 2.8 g/dl (3.4-5.0); BILIRUBIN,TOTAL 0.8 mg/dL (0.2-1); BLOOD UREA NITROGEN 13.9 mg/dL (7-18); CALCIUM 8.8 mg/dL (8.5-10.1); CREATININE 0.6 mg/dL (0.55-1.3); POTASSIUM 3.4 mmol/L (3.5-5.1); TOT PROT 6.4 g/dl (6.4-8.2)
--- NOTE | 2019-08-01 10:28 | CON.CARD ---
Consult Consult Specialty:: Cardiology (Coverage for Dr. Braga) Referred by:: Hospitalist Reason for Consultation:: Cardiac evaluation and clearance - History of Present Illness Chief Complaint: S/P fall resulting in left intertrochanteric fracture History of Present Illness: Patient is an 84 year old female with organic brain syndrome/dementia, depression and history of DVT on Coumadin who presented with a mechanical fall resulting in left hip fracture. She was seen by Orthopedics and is planned for surgery. She fell going to the bathroom at home. She denies any other injuries. She denies chest pain, SOB or palpitations. She denies paroxysmal nocturnal dyspnea or orthopnea. She denies fever or chills. She denies nausea, vomiting, diarrhea or abdominal pain. She denies headache or lightheadedness. - History Source History Provided By: Patient, Significant Other Limitations to Obtaining History: Dementia - Past Medical History POMOLOGIST: Yes: Dementia ...: No Psych: Yes: Depression Additional Medical History: DVT - Past Surgical History Past Surgical History: Yes: Hernia Repair - Alcohol/Substance Use Hx Alcohol Use: No - Smoking History Smoking history: Former smoker Have you smoked in the past 12 months: No If you are a former smoker, when did you quit?: 30years ago Home Medications - Allergies Allergies/Adverse Reactions: Allergies Allergy/AdvReac Type Severity Reaction Status Date / Time morphine Allergy Itching Verified 07/30/19 12:56 - Home Medications Home Medications: Ambulatory Orders Escitalopram Oxalate [Lexapro -] 10 mg PO HS 05/02/19 Acetaminophen [Tylenol .Regular Strength -] 650 mg PO Q4H PRN tablet 05/06/19 Aspirin [ASA -] 81 mg PO DAILY #0 tab.chew 05/06/19 Ascorbate Calcium [Vitamin C] 500 mg PO DAILY 07/30/19 Ferrous Sulfate 325 mg PO DAILY 07/30/19 Menthol [Bengay Ultra Strength] 1 each TP DAILY 07/30/19 Sennosides [Senna] 2 tab PO DAILY 07/30/19 Warfarin Sodium [Coumadin] 3 mg PO DAILY 07/30/19 Zinc Sulfate [Orazinc] 220 mg PO DAILY 07/30/19 Family Medical History Family History: Unable to Obtain Review of Systems - Review of Systems Constitutional: denies: Chills, Fever Cardiovascular: denies: Chest Pain, Palpitations, Shortness of Breath Gastrointestinal: denies: Abdominal Pain, Constipation, Diarrhea, Melena, Nausea , Rectal Bleeding, Vomiting Genitourinary: denies: Dysuria, Hematuria Neurological: denies: Dizziness, Headache, Syncope, Tremors Vital Signs: Vital Signs Temperature 99.0 F 08/01/19 07:30 Pulse Rate 101 H 08/01/19 07:30 Respiratory Rate 16 08/01/19 07:30 Blood Pressure 136/61 08/01/19 07:30 O2 Sat by Pulse Oximetry (%) 98 07/30/19 13:20 Eyes: Yes: PERRL HENT: Yes: Atraumatic Neck: Yes: Supple Respiratory: Yes: Diminished Gastrointestinal: Yes: Normal Bowel Sounds, Soft. No: Tenderness Cardiovascular: Yes: Regular Rate and Rhythm JVD: No PMI: Non-Displaced Heart Sounds: Yes: S1, S2 Murmur: Yes: Systolic Murmur, Grade 1 Edema: No - Other Data Labs, Other Data: CBC, BMP 08/01/19 06:35 08/01/19 06:35 INR, PTT INR 3.66 (0.83-1.09) H 08/01/19 06:35 Laboratory Results - last 24 hr 07/30/19 07/31/19 07/31/19 13:30 07:40 10:06 WBC RBC Hgb Hct MCV MCH MCHC RDW Plt Count MPV PT with INR INR 5.25 H* Sodium Potassium Chloride Carbon Dioxide Anion Gap BUN Creatinine Est GFR (CKD-EPI)AfAm Est GFR (CKD-EPI)NonAf Random Glucose Calcium Total Bilirubin AST ALT Alkaline Phosphatase Total Protein Albumin Rheumatoid Arth Biomark 16.2 H HIV 1&2 Ag/Ab, 4th Gen Non reactive 08/01/19 08/01/19 08/01/19 06:35 06:35 06:35 WBC 9.7 RBC 2.76 L Hgb 8.9 L Hct 26.3 L MCV 95.2 MCH 32.4 MCHC 34.0 RDW 17.3 H Plt Count 92 L MPV 10.5 PT with INR 43.80 H INR 3.66 H Sodium 139 Potassium 3.4 L Chloride 106 Carbon Dioxide 27 Anion Gap 6 L BUN 13.9 Creatinine 0.6 Est GFR (CKD-EPI)AfAm 98.38 Est GFR (CKD-EPI)NonAf 84.88 Random Glucose 128 H Calcium 8.8 Total Bilirubin 0.8 AST 17 ALT 11 L Alkaline Phosphatase 62 Total Protein 6.4 Albumin 2.8 L Rheumatoid Arth Biomark HIV 1&2 Ag/Ab, 4th Gen Normal sinus rhythm Echo: Report Reviewed Imaging - Results Chest X-ray: Report Reviewed (Unremarkable) Cat Scan: Report Reviewed (Head CT volume loss) EKG: Report Reviewed Problem List - Problems (1) DVT (deep venous thrombosis) Code(s): I82.409 - ACUTE EMBOLISM AND THOMBOS UNSP DEEP VN UNSP LOWER EXTREMITY (2) Intertrochanteric fracture of left hip Code(s): S72.142A - DISPLACED INTERTROCHANTERIC FRACTURE OF LEFT FEMUR, INIT Qualifiers: Encounter type: initial encounter Fracture type: closed Fracture alignment: displaced Qualified Code(s): S72.142A - Displaced intertrochanteric fracture of left femur, initial encounter for closed fracture (3) Failure to thrive Code(s): OEM3940 - (4) Dementia Code(s): F03.90 - UNSPECIFIED DEMENTIA WITHOUT BEHAVIORAL DISTURBANCE Assessment/Plan 1. Mechanical fall resulting in left hip fracture 2. Organic brain/dementia 3. History of depression PLAN: 1. There is no absolute contraindication for surgery in view of absence of ischemic symptoms, decompensated congestive heart failure or malignant arrhythmia 2. Echocardiography report reviewed 3. No specific cardiac therapy is warranted at this time 4. Hold Coumadin in preparation for surgery Dr. Braga to resume care in AM Mario Vuong MD
--- NOTE | 2019-08-01 14:53 | PN ---
Progress Note, Physician Chief Complaint: c/o pain L hip, and appears comfortable, - Current Medication List Current Medications: Active Medications Acetaminophen (Ofirmev Injection -) 1,000 mg IVPB Q6H PRN PRN Reason: PAIN LEVEL 6-10 Last Admin: 07/31/19 20:59 Dose: 1,000 mg Escitalopram Oxalate (Lexapro -) 10 mg PO HS YOUSIF Last Admin: 07/31/19 20:59 Dose: 10 mg Lactated Ringer's (Lactated Ringers Solution) 1,000 ml in 1,000 mls @ 83 mls/ hr IV ASDIR YOUSIF Last Admin: 08/01/19 06:29 Dose: 83 mls/hr - Objective Vital Signs: Vital Signs Temperature 98.1 F 08/01/19 14:12 Pulse Rate 119 H 08/01/19 14:12 Respiratory Rate 20 08/01/19 14:12 Blood Pressure 125/56 L 08/01/19 14:12 O2 Sat by Pulse Oximetry (%) 97 08/01/19 09:00 Constitutional: Yes: Well Nourished, No Distress Eyes: Yes: Conjunctiva Clear, Other (uable to move the eyes vertically, and horizontally,) Neck: Yes: WNL, Supple Cardiovascular: Yes: WNL, Regular Rate and Rhythm Respiratory: Yes: Regular, CTA Bilaterally Gastrointestinal: Yes: WNL, Normal Bowel Sounds, Soft ...Rectal Exam: Yes: WNL Musculoskeletal: Yes: WNL Extremities: Yes: WNL Edema: No Neurological: Yes: Alert, Oriented, Other (pt unable to move the eyes horizontally and vertically, is staring the ceiling, and has cogwheel rigidity of the arms and R leg,) Labs: CBC, BMP 08/01/19 06:35 08/01/19 06:35 INR, PTT INR 3.66 (0.83-1.09) H 08/01/19 06:35 Problem List - Problems (1) DVT (deep venous thrombosis) Code(s): I82.409 - ACUTE EMBOLISM AND THOMBOS UNSP DEEP VN UNSP LOWER EXTREMITY (2) Intertrochanteric fracture of left hip Code(s): S72.142A - DISPLACED INTERTROCHANTERIC FRACTURE OF LEFT FEMUR, INIT Qualifiers: Encounter type: initial encounter Fracture type: closed Fracture alignment: displaced Qualified Code(s): S72.142A - Displaced intertrochanteric fracture of left femur, initial encounter for closed fracture (3) Prolonged INR Code(s): R79.1 - ABNORMAL COAGULATION PROFILE (4) Thrombocytopenia Code(s): D69.6 - THROMBOCYTOPENIA, UNSPECIFIED Impression/Plan Impression/Plan: ASSESSMENT/PLAN: Patient presents for intertrochanteric hip fracture and 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 -Intertrochanteric Hip Fracture reviewed the heme consult, INR still high give vitamin K to reverse, recheck inr in am, cleared by the cardioology ofr surgery, -Progressive Supranuclear Palsy *This is an uncommon neurodegenerative disorder that causes imparment of balance, impaired eye movement, rigidity, dysarthria, and dysphagia. It mimics other items on the ddx including Parkinsons, Alzheimer disease, corticobasilar degeneration, and other neurodegerative disorders. Seen by Dr. Davis who agrees with postoperative trial of levadopa. 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 OP followup with DEXA, vitamin D, etc. -Mechanical Fall *Likely related to underlying neurological condition Visit type - Emergency Visit Emergency Visit: No - New Patient This patient is new to me today: Yes Date on this admission: 08/01/19 - Critical Care Critical Care patient: No - Discharge Referral Referred to [facility] No
[2019-08-01] MEDS: ACETAMINOPHEN 1000 MG/100 ML VIAL (NON FORMULARY) IVPB PRN (16:03)
[2019-08-01] MEDS ORDERED: PHYTONADIONE 5 MG TABLET PO ONE (17:39)
[2019-08-01] MEDS ORDERED: POTASSIUM CHLORIDE TABS 20 MEQ TABLET.ER (FP) PO ONE (17:45)
--- NOTE | 2019-08-01 17:53 | PN ---
Progress Note (short form) - Note Progress Note: Pt seen and examined. S: Mentioned pain which is old, burning near chest area O: Last Vital Signs Temp Pulse Resp BP Pulse Ox 98.8 F 110 H 16 130/70 97 08/01/19 16:00 08/01/19 16:00 08/01/19 16:00 08/01/19 16:00 08/01/19 09:00 General: NAD HEENT: MMM CVS: S1, S2 Lungs: CTAB/Ant Abd: Soft, NT, ND Extremities: No edema Skin: No rash 08/01/19 06:35 08/01/19 06:35 Current Medications Generic Name Dose Route Start Last Admin Trade Name Freq PRN Reason Stop Dose Admin Acetaminophen 1,000 mg 07/30/19 13:12 08/01/19 16:03 Ofirmev Injection - IVPB 1,000 mg Q6H PRN Administration PAIN LEVEL 6-10 Escitalopram Oxalate 10 mg 07/30/19 22:00 07/31/19 20:59 Lexapro - PO 10 mg HS YOUSIF Administration Lactated Ringer's 1,000 ml in 1,000 mls @ 83 mls/hr 07/30/19 13:15 08/01/19 16:11 Lactated Ringers Solution IV 83 mls/hr ASDIR YOUSIF Administration Phytonadione 5 mg 08/01/19 17:39 Mephyton - PO 08/01/19 17:40 ONCE ONE Potassium Chloride 20 meq 08/01/19 17:45 K-Dur - PO 08/01/19 17:46 ONCE ONE 84 y/o lady with interthrochanteric fracture needing surgical repair with prolonged INR on warfarin and thrombocytopenia. Recommend: 1) Hold Warfarin and monitor daily PT/INR. INR normalizing with holding coumadin. Can either wait or give low dose of Vitamin K. If emergency surgery required reverse INR with 4 factor PCC (Prothrombin Complex Concentrate) or FFP. 2) Thrombocytopenia: Stable. No overt sepsis so doubt DIC. Possible medication effect but mild and self resolving so consider to monitor. 3) Thank you for this consultation. Problem List - Problems (1) Thrombocytopenia Code(s): D69.6 - THROMBOCYTOPENIA, UNSPECIFIED (2) Prolonged INR Code(s): R79.1 - ABNORMAL COAGULATION PROFILE
[2019-08-01] MEDS ORDERED: PT OWN MED DRAWER 7, Y5N ONE (18:22)
[2019-08-01] MEDS: ESCITALOPRAM OXALATE 10 MG TABLET (FP) PO SCH (21:36)
[2019-08-02] MEDS: ACETAMINOPHEN 1000 MG/100 ML VIAL (NON FORMULARY) IVPB PRN (03:25)
[2019-08-02] MEDS: LACTATED RINGERS SOLUTION 1,000 ML/1,000 ML INFUS.BAG IV SCH (03:39)
[2019-08-02 07:24] LABS: BASO % 0.3 % (0-2.0); EOS % 0.3 % (0-4.5); HEMATOCRIT 23.2 % (32.4-45.2); HEMOGLOBIN 7.8 GM/dL (10.7-15.3); MCH 32.4 pg (25.7-33.7); MCHC 33.8 g/dl (32.0-36.0); MEAN PLT VOLUME 10.5 fl (7.5-11.1); MONO % 23.9 % (3.8-10.2); NEUT % 54.5 % (42.8-82.8); PLATELET COUNT 99 K/MM3 (134-434); RBC 2.41 M/mm3 (3.60-5.2); RDW 17.2 % (11.6-15.6); WHITE BLOOD COUNT 8.5 K/mm3 (4.0-10.0)
[2019-08-02 07:47] LABS: INR 1.63 (0.83-1.09); PROTHROMBIN TIME (PATIENT) 19.3 SEC (9.7-13.0)
[2019-08-02 07:48] LABS: ALBUMIN 2.3 g/dl (3.4-5.0); BILIRUBIN,TOTAL 0.8 mg/dL (0.2-1); BLOOD UREA NITROGEN 14.3 mg/dL (7-18); CALCIUM 8.3 mg/dL (8.5-10.1); CREATININE 0.5 mg/dL (0.55-1.3); POTASSIUM 3.4 mmol/L (3.5-5.1); TOT PROT 5.6 g/dl (6.4-8.2)
--- NOTE | 2019-08-02 08:01 | PN ---
Progress Note, Physician History of Present Illness: Patient is an 84 year old female with organic brain syndrome/dementia, depression and history of DVT on Coumadin who presented with a mechanical fall resulting in left hip fracture. She was seen by Orthopedics and is planned for surgery. She fell going to the bathroom at home. She denies any other injuries. She denies chest pain, SOB or palpitations. She denies paroxysmal nocturnal dyspnea or orthopnea. She denies fever or chills. She denies nausea, vomiting, diarrhea or abdominal pain. She denies headache or lightheadedness - Current Medication List Current Medications: Active Medications Acetaminophen (Ofirmev Injection -) 1,000 mg IVPB Q6H PRN PRN Reason: PAIN LEVEL 6-10 Last Admin: 08/02/19 03:25 Dose: 1,000 mg Escitalopram Oxalate (Lexapro -) 10 mg PO HS YOUSIF Last Admin: 08/01/19 21:36 Dose: 10 mg Lactated Ringer's (Lactated Ringers Solution) 1,000 ml in 1,000 mls @ 83 mls/ hr IV ASDIR YOUSIF Last Admin: 08/02/19 03:39 Dose: 83 mls/hr - Objective Vital Signs: Vital Signs Temperature 98.8 F 08/02/19 06:00 Pulse Rate 93 H 08/02/19 06:00 Respiratory Rate 16 08/02/19 06:00 Blood Pressure 131/61 08/02/19 06:00 O2 Sat by Pulse Oximetry (%) 98 08/01/19 20:44 Eyes: Yes: WNL, Conjunctiva Clear, EOM Intact HENT: Yes: WNL, Atraumatic, Normocephalic Neck: Yes: WNL, Supple, Trachea Midline Cardiovascular: Yes: WNL, Regular Rate and Rhythm Respiratory: Yes: WNL, Regular, CTA Bilaterally Gastrointestinal: Yes: WNL, Normal Bowel Sounds Genitourinary: Yes: WNL Musculoskeletal: Yes: WNL Extremities: Yes: External Rotation Edema: No Integumentary: Yes: WNL Neurological: Yes: WNL, Alert, Oriented ...Motor Strength: WNL Psychiatric: Yes: WNL Labs: CBC, BMP 08/02/19 06:38 INR, PTT INR 1.63 (0.83-1.09) H 08/02/19 06:38 Assessment/Plan 1. Mechanical fall resulting in left hip fracture 2. Organic brain/dementia 3. History of depression PLAN: 1. There is no absolute contraindication for surgery in view of absence of ischemic symptoms, decompensated congestive heart failure or malignant arrhythmia 2. Echocardiography report reviewed 3. No specific cardiac therapy is warranted at this time 4. Hold Coumadin in preparation for surgery 5. OR in AM
--- NOTE | 2019-08-02 08:22 | PN ---
Progress Note (short form) - Note Progress Note: Ortho Pt seen and examined s/p left IT fx, awaiting medical stabilization for OR Laboratory Tests 08/02/19 08/02/19 06:38 06:38 WBC 8.5 Hgb 7.8 L Hct 23.2 L Plt Count 99 L PT with INR 19.30 H INR 1.63 H LLE- shortened and ER, + swelling, +ttp, dec rom, nvi a/p INR needs to be around 1.4 prior to OR Surgical clearance OR tentatively tomorrow NPO after midnight in case d/w Dr. Frias
--- NOTE | 2019-08-02 08:36 | PN ---
Progress Note (short form) - Note Progress Note: HPI: Events of weekend noted, s/p Vitamin K for supratherapeutic INR of ~5. Pt without significant bleeding and optimized for surgery pending INR resolution. Today pt with pain in L hip, however tolerable if staying still. Denies SOB, CP , palpitations, dizziness/lightheadedness. HPI limited in part due to pt's clinical condition PE: GENERAL: Awake, more alert today, oriented to self and place, NAD HEENT: Nc/AT, FIFI, sclera anicteric, masked facies, MMM LUNGS: CTA b/l. No wheezes, and no crackles. No accessory muscle use. HEART: RRR, normal S1 and S2 without murmur ABDOMEN: Soft, NT/ND, normoactive bowel sounds, no guarding MUSCULOSKELETAL: Externally rotated left leg, aROM of L foot intact LOWER EXTREMITIES: 2+ DP pulses b/l, warm, well-perfused. No calf tenderness. No peripheral edema. SKIN: Warm, dry, normal turgor, no rashes or lesions noted, normal capillary refill. CBC, BMP 08/02/19 06:38 08/02/19 06:38 Microbiology 07/30/19 13:30 Urine - Urine Mar Urine Culture - Final Streptococcus Viridans Active Medications Acetaminophen (Ofirmev Injection -) 1,000 mg IVPB Q6H PRN PRN Reason: PAIN LEVEL 6-10 Last Admin: 08/02/19 03:25 Dose: 1,000 mg Escitalopram Oxalate (Lexapro -) 10 mg PO HS YOUSIF Last Admin: 08/01/19 21:36 Dose: 10 mg Potassium Chloride (K-Dur -) 40 meq PO BID YOUSIF Stop: 08/02/19 22:01 Last Admin: 08/02/19 10:49 Dose: 40 meq ASSESSMENT/PLAN: L intertrochanteric hip fracture DVT on anticoagulation Acute normocytic anemia Rhabdomyolysis (resolved) Thrombocytopenia (improved) Leukocytosis likely reactive Progressive Supranuclear Palsy Depression --Unwitnessed fall leading to intertrochanteric hip fracture --Orthopedic surgery on board; pt's surgery planned for tomorrow due to anticipated INR <1.4 --Pain control (allergy to morphine unclear via homeworker); distal nerve block initially vs. Tylenol 1gm QID PRN --Acute normocytic anemia must r/o bleed in setting of supratherapeutic INR --Stool occult ordered --Monitor for bleeding and hematoma formation --No bloody BM's at this point; benign abdomen --Surgical optimization: Diaz score 1.6% MANNY RCR score 3.9 - 6.0% Mod-high risk patient for moderate risk procedure based on Mets and surgical procedure --Thrombocytopenia with possible consumption; improving at this point --Leukocytosis suspected to be reactive --Continue Lexapro home dose --Will trial Carbidopa-Levidopa post-operatively for PSP for alleviation of some symptoms FEN: Fluids: Discontinue IVF with regular diet Electrolyte abnormalities: Hypokalemia repleted Nutrition: Regular diet with NPO after midnight PPX: DVT - SCDs GI - Not indicated Dispo: monitor M/S; anticipate Or tomorrow Case discussed with Dr. Shelly Landon, DO - IM PGY-3
--- NOTE | 2019-08-02 09:42 | PN ---
Teaching Attending Note Name of Resident: Clive Landon ATTENDING PHYSICIAN STATEMENT I saw and evaluated the patient. I reviewed the resident's note and discussed the case with the resident. I agree with the resident's findings and plan as documented. SUBJECTIVE:Patient confused. She denies pain. OBJECTIVE: Vital Signs Period Temp Pulse Resp BP Sys/Pierce Pulse Ox Last 24 Hr 98.1 F-98.8 F 93-119 16-20 125-131/56-70 98 HEART: S1S2, RRR LUNGS: Clear ABDOMEN: Soft, non-tender, non-distended, normal BS EXTREMITIES: No edema. LLE externally rotated Laboratory Results - last 24 hr 08/02/19 08/02/19 08/02/19 06:38 06:38 06:38 WBC 8.5 RBC 2.41 L Hgb 7.8 L Hct 23.2 L MCV 96.0 MCH 32.4 MCHC 33.8 RDW 17.2 H Plt Count 99 L MPV 10.5 Absolute Neuts (auto) 4.6 Neutrophils % 54.5 D Lymphocytes % 21.0 D Monocytes % 23.9 H Eosinophils % 0.3 D Basophils % 0.3 Nucleated RBC % 0 PT with INR 19.30 H INR 1.63 H Sodium 141 Potassium 3.4 L Chloride 107 Carbon Dioxide 28 Anion Gap 5 L BUN 14.3 Creatinine 0.5 L Est GFR (CKD-EPI)AfAm 104.46 Est GFR (CKD-EPI)NonAf 90.13 Random Glucose 114 H Calcium 8.3 L Total Bilirubin 0.8 AST 15 ALT 13 Alkaline Phosphatase 59 Total Protein 5.6 L Albumin 2.3 L Current Medications Generic Name Dose Route Start Last Admin Trade Name Freq PRN Reason Stop Dose Admin Acetaminophen 1,000 mg 07/30/19 13:12 08/02/19 03:25 Ofirmev Injection - IVPB 1,000 mg Q6H PRN Administration PAIN LEVEL 6-10 Escitalopram Oxalate 10 mg 07/30/19 22:00 08/01/19 21:36 Lexapro - PO 10 mg HS YOUSIF Administration Potassium Chloride 40 meq 08/02/19 10:00 K-Dur - PO 08/02/19 22:01 BID YOUSIF ASSESSMENT AND PLAN: This is an 84 year old woman with a history of dementia, depression, DVT who presented to the ED after a fall. 1. Intertrochanteric left femur fracture - Plan for surgery once INR <=1.4 2. s/p fall 3. Hypokalemia - Replete potassium 4. Recent DVT - Coumadin on hold for surgery 5. Rhabdomyolysis - Improving 6. Anemia, likely secondary to acute blood loss - Transfuse 1 unit PRBCs in preparation for surgery - Monitor hemoglobin 7. Thrombocytopenia - Improving 8. Leukocytosis - Likely reactive - Resolved 9. Progressive supranuclear palsy 10. Depression - Continue Lexapro
[2019-08-02] MEDS: POTASSIUM CHLORIDE TABS 20 MEQ TABLET.ER (FP) PO SCH ×2 (10:49→22:42)
[2019-08-02 10:56] LABS: ANISOCYTOSIS 0; MACROCYTOSIS 1+; PLATELET ESTIMATE DECREASED; TARGET CELLS 1+
[2019-08-02 11:07] LABS: MAGNESIUM 1.7 mg/dL (1.8-2.4)
--- NOTE | 2019-08-02 15:26 | PN ---
Progress Note, [employer] - Note Progress Note: Pt seen at bedside for follow up to swallow eval with recommendations for regular solids with thin liquids. Chart review indicates pt is consuming approximately 75% of meals with no overt s/s aspiration at this time. Recommendation: Continue po intake of regularsolids with thin liquids at tolerated. Observe standard aspiration precautions. Provide oral care before and after meals. Provide oral care after meal. Results given verbally to cupola charger insulation and PCP via chart. [employer] to follow up for diet tolerance.
[2019-08-02] MEDS: ESCITALOPRAM OXALATE 10 MG TABLET (FP) PO SCH (22:42)
[2019-08-03] MEDS: ACETAMINOPHEN 1000 MG/100 ML VIAL (NON FORMULARY) IVPB PRN ×2 (00:04→19:52)
--- NOTE | 2019-08-03 05:48 | PN ---
Progress Note (short form) - Note Progress Note: Patient seen and examined c/o Lt. thigh pain Last Vital Signs Temp Pulse Resp BP Pulse Ox 97.9 F 99 H 20 149/79 99 08/03/19 02:00 08/03/19 02:00 08/03/19 02:00 08/03/19 02:00 08/02/19 21:00 Cor: RSR, No murmurs, No gallops Lungs: Clear to P&A Abd: Soft, Normal bowel sounds, No organomegaly Ext:No significant edema Labs/meds reviewed a/p 84 year old woman with a history of dementia, depression, DVT who presented to the ED after a fall. Intertrochanteric left femur fracture - Plan for surgery once INR <=1.4 check duplex lower extremities Thrombocytopenia--72016 ? consumptive transfuse monodonor platelets to keep >80-100,000 Leukocytosis-? reactive Blood loss anemia -- getting PRBCs will follow
--- NOTE | 2019-08-03 06:07 | PN ---
Progress Note (short form) - Note Progress Note: Patient seen and examined c/o Lt. thigh pain AFVSS Cor: RSR, No murmurs, No gallops Lungs: Clear to P&A Abd: Soft, Normal bowel sounds, No organomegaly Ext:No significant edema Labs/meds reviewed a/p 84 year old woman with a history of dementia, depression, DVT who presented to the ED after a fall. Intertrochanteric left femur fracture - Plan for surgery once INR <=1.4 check duplex lower extremities Thrombocytopenia--32724 ? consumptive transfuse monodonor platelets to keep >80-100,000 Leukocytosis-? reactive Blood loss anemia -- getting PRBCs will follow
[2019-08-03 08:01] LABS: HEMATOCRIT 27.2 % (32.4-45.2); HEMOGLOBIN 9.2 GM/dL (10.7-15.3); MEAN CELL VOLUME 94.2 fl (80-96); MEAN PLT VOLUME 9.9 fl (7.5-11.1); PLATELET COUNT 125 K/MM3 (134-434); RBC 2.89 M/mm3 (3.60-5.2); RDW 16.4 % (11.6-15.6); WHITE BLOOD COUNT 9.2 K/mm3 (4.0-10.0)
--- NOTE | 2019-08-03 08:02 | PN ---
Progress Note (short form) - Note Progress Note: HPI: Hip pain remains without any worsening. Denies SOB, CP, palpitations, dizziness/lightheadedness. HPI limited in part due to pt's clinical condition PE: GENERAL: Awake, more alert today, oriented to self and place, NAD HEENT: Nc/AT, FIFI, sclera anicteric, masked facies, MMM LUNGS: CTA b/l. No wheezes, and no crackles. No accessory muscle use. HEART: RRR, normal S1 and S2 without murmur ABDOMEN: Soft, NT/ND, normoactive bowel sounds, no guarding MUSCULOSKELETAL: Externally rotated left leg, aROM of L foot intact LOWER EXTREMITIES: 2+ DP pulses b/l, warm, well-perfused. No calf tenderness. No peripheral edema. SKIN: Warm, dry, normal turgor, no rashes or lesions noted, normal capillary refill. CBC, BMP 08/03/19 06:55 08/03/19 06:55 Microbiology 07/30/19 13:30 Urine - Urine Mar Urine Culture - Final Streptococcus Viridans Active Medications Escitalopram Oxalate (Lexapro -) 10 mg PO HS [facility] Last Admin: 08/02/19 22:42 Dose: 10 mg ASSESSMENT/PLAN: L intertrochanteric hip fracture DVT on anticoagulation Acute normocytic anemia Rhabdomyolysis (resolved) Thrombocytopenia (improved) Leukocytosis likely reactive Progressive Supranuclear Palsy Depression --Unwitnessed fall leading to intertrochanteric hip fracture --Orthopedic surgery on board; pt's surgery planned for tomorrow due to anticipated INR <1.4 --Pain control (allergy to morphine unclear via home care chaplain); Tylenol 1gm QID PRN --Acute normocytic anemia --S/p 1U PRBC with appropriate response --Duplex with r/o of negative DVT --Platelets above 80K (125K today) --Stool occult negative --Surgical optimization: Diaz score 1.6% MANNY RCR score 3.9 - 6.0% Mod-high risk patient for moderate risk procedure based on Mets and surgical procedure --Pt is medical optimized to undergo procedure today with INR 1.2 and above --Appreciate all consultation and optimization recommendations --Thrombocytopenia with possible consumption; improving at this point --Leukocytosis suspected to be reactive --Continue Lexapro home dose --Will trial Carbidopa-Levidopa post-operatively for PSP for alleviation of some symptoms FEN: Fluids: Electrolyte abnormalities: No electrolyte abnormalities Nutrition: NPO for procedure PPX: DVT - SCDs GI - Not indicated Dispo: OR today Case discussed with Dr. Shelly Landon, DO - IM PGY-3
[2019-08-03 08:08] LABS: INR 1.24 (0.83-1.09); PROTHROMBIN TIME (PATIENT) 14.7 SEC (9.7-13.0)
[2019-08-03 08:18] LABS: BLOOD UREA NITROGEN 13.4 mg/dL (7-18); CALCIUM 8.4 mg/dL (8.5-10.1); CREATININE 0.5 mg/dL (0.55-1.3); MAGNESIUM 1.9 mg/dL (1.8-2.4); PHOSPHOROUS 2.5 mg/dL (2.5-4.9)
--- NOTE | 2019-08-03 11:43 | PN ---
Teaching Attending Note Name of Resident: Clive Landon ATTENDING PHYSICIAN STATEMENT I saw and evaluated the patient. I reviewed the resident's note and discussed the case with the resident. I agree with the resident's findings and plan as documented. SUBJECTIVE: Patient appears comfortable lying in bed. She is confused and has no complaints. OBJECTIVE: Vital Signs Period Temp Pulse Resp BP Sys/Pierce Pulse Ox Last 24 Hr 97.9 F-99.7 F 93-119 18-22 129-154/60-90 99-99 HEART: S1S2, RRR LUNGS: Clear ABDOMEN: Soft, non-tender, non-distended, normal BS EXTREMITIES: No edema. LLE externally rotated Laboratory Results - last 24 hr 07/30/19 08/02/19 08/03/19 19:02 15:30 06:55 WBC 9.2 RBC 2.89 L Hgb 9.2 L Hct 27.2 L D MCV 94.2 MCH 32.0 MCHC 34.0 RDW 16.4 H Plt Count 125 L D MPV 9.9 PT with INR INR Sodium Potassium Chloride Carbon Dioxide Anion Gap BUN Creatinine Est GFR (CKD-EPI)AfAm Est GFR (CKD-EPI)NonAf Random Glucose Calcium Phosphorus Magnesium JAVY Screen Negative Blood Type O NEGATIVE Antibody Screen Negative Crossmatch See Detail 08/03/19 08/03/19 06:55 06:55 WBC RBC Hgb Hct MCV MCH MCHC RDW Plt Count MPV PT with INR 14.70 H INR 1.24 H Sodium 139 Potassium 4.0 Chloride 107 Carbon Dioxide 26 Anion Gap 6 L BUN 13.4 Creatinine 0.5 L Est GFR (CKD-EPI)AfAm 104.46 Est GFR (CKD-EPI)NonAf 90.13 Random Glucose 108 H Calcium 8.4 L Phosphorus 2.5 Magnesium 1.9 JAVY Screen Blood Type Antibody Screen Crossmatch Current Medications Generic Name Dose Route Start Last Admin Trade Name Freq PRN Reason Stop Dose Admin Escitalopram Oxalate 10 mg 07/30/19 22:00 08/02/19 22:42 Lexapro - PO 10 mg HS YOUSIF Administration ASSESSMENT AND PLAN: This is an 84 year old woman with a history of dementia, depression, DVT who presented to the ED after a fall. 1. Intertrochanteric left femur fracture - Plan for surgery today 2. s/p fall 3. Hypokalemia - Improved 4. Recent DVT - Coumadin on hold for surgery - Venous dopplers show no evidence of DVT 5. Rhabdomyolysis - Improved 6. Anemia, likely secondary to acute blood loss - 1 unit PRBCs transfused yesterday with improvement in Hgb - Continue to monitor hemoglobin 7. Thrombocytopenia - Improving 8. Leukocytosis - Likely reactive - Resolved 9. Progressive supranuclear palsy 10. Depression - Continue Lexapro
--- NOTE | 2019-08-03 12:30 | PN ---
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 Reg diet ordered. Known to me from 04/2019 at which time she was on chopped diet. Call placed to pt's daughter regarding diet given at home and if pt uses her dentures. Consider chopped diet, post op, until reassessed.
[2019-08-03] MEDS ORDERED: LACTATED RINGERS SOLUTION 1,000 ML IV SCH (15:00)
[2019-08-03] MEDS ORDERED: ceFAZolin SODIUM 1 GM VIAL IVPB ONE (15:40)
[2019-08-03] MEDS ORDERED: MIDAZOLAM HCL 2 MG/2 ML SINGLE DOSE VIAL ONE (15:43)
--- NOTE | 2019-08-03 16:37 | OP ---
Operative Note - Note: Operative Date: 08/03/19 Pre-Operative Diagnosis: left femur intertrochanteric hip fracture Operation: left femur Gamma Nail Implants: Estuardo G3 Gamma Nail, 95mm lag screw, 35mm distal locking screw Surgeon: Brandon Frias Wound Care Coordinator: Sumit Sarabia Anesthesiologist/MANAGER SOURCING: Elias Da Silva Anesthesia: Local, MAC Estimated Blood Loss (mls): 100 Drains, Volume Out (mls): 0 Blood Volume Replaced (mls): 0 Fluid Volume Replaced (mls): 500 Operative Report Dictated: Yes
--- NOTE | 2019-08-03 17:24 | SPEC ---
DATE OF OPERATION: 08/03/2019 PREOPERATIVE DIAGNOSIS: Left femur intertrochanteric hip fracture. POSTOPERATIVE DIAGNOSIS: Left femur intertrochanteric hip fracture. PROCEDURE: Left femur Gamma nail. SURGEON: Brandon Frias MD SUPERVISOR DRY PASTE: Fabio Ledesma MD ANESTHESIA: Sumit Sarabia MD, LMA anesthesia. BLOOD LOSS: 100 mL. BLOOD GIVEN: None. FLUID REPLACEMENT: 500 mL. DRAINS: None. COMPLICATIONS: None. INDICATIONS: This patient is an 84-year-old female with a preoperative diagnosis of a left femur displaced intertrochanteric hip fracture. After understanding the potential risks, complications, alternatives, and benefits to surgery versus nonsurgical treatment, she and her family elected to undergo this procedure. The patient and her family understand there is a risk of nonunion, need for additional surgery, hardware failure, bone failure, need for revision, possibly a total hip replacement. DESCRIPTION OF PROCEDURE: Patient was brought to the operating room. Peripheral IV placed. IV sedation given, 2 g of IV Ancef were given. Ample Webril was placed around the ankle. Epidural and then deep MAC anesthesia was induced. The patient was placed onto the fracture table with a slight longitudinal traction and internal rotation. X-rays were taken documenting excellent reduction of the fracture in the AP and lateral planes. Next, an incision was made over the proximal aspect of the greater trochanter. Subcutaneous hemostasis was achieved with a Bovie cautery, dissection done through the lateral fascia to the top of the greater trochanter. A Morales elevator was used to take off the soft tissue from the starting point. Under direct visualization a partially threaded guide-wire was placed through the standard starting position, into the proximal femur, passed the fracture fragment into the medullary canal. It was documented to be in excellent position in AP, lateral and multiple oblique planes. Next, we used the proximal 17 mm cannulated reamer and put in a standard titanium [place] Gamma 3 125 degree, 180 mm trochanteric nail. This was put in cannulated fashion to appropriate depth and using the external guide in a standard fashion, first using external jig, using a threaded guide-wire, replaced the lag screw, guide pin to the lateral aspect of the femur. The prosthesis and up to the femoral neck and head, looked to be in excellent position in a center central position, perhaps slightly posterior and slightly inferior in both AP and lateral planes. We measured it at an 95 mm screw. The cannulated drill was used to drill it to this leg and then we put in an 95 mm titanium lag screw. We achieved excellent compression and overall the position of the hardware in the fracture fragments looked excellent. We locked it in place with a proximal set screw, we altered the external jig to the static position and using the standard technique put in a distal interlocking screw under direct visualization of 35 mm in length. This locked the nail distally. We removed the external jig. We repeated x-rays in AP, lateral and multiple oblique planes and overall I was quite happy with the position of the fracture reduction, the length of the screw, the position of the hardware. Final x-rays were taken. The area was copiously irrigated and washed out. The deep fascial layer was closed with 0 Vicryl sutures. The deep dermal layer was closed with 2-0 Vicryl. Final skin approximation was done with kiarra. The area was then washed and dried, covered with Xeroform gauze, 4 x 4 gauze, ABD and tape. Patient was taken down off the fracture table in stable condition. There were no complications during the case. Total operative time was about 40 minutes. Anoop [id number]
[2019-08-03] MEDS: LACTATED RINGERS SOLUTION 1,000 ML IV SCH (17:30)
--- NOTE | 2019-08-03 18:21 | PN ---
Progress Note, Physician Chief Complaint: Pt fatigued post-op History of Present Illness: The patient is an 84 year old female with a significant past medical history of cognitive decline, dementia and depression, DVT on coumadin? who presents to the ED BIBA with 10/10 L hip pain s/p fall at 12:00am, unable to move 2/2 pain. Patient notes she lives at home alone, was going to the bathroom and fell last night approx 12am. Patient denies hitting her head or LOC. per records, ASA 81 mg po daily. pt is DNR/DNI. coumadin information provided upon talking to daughter, Ms Donald). Patient denies numbness/tingling on legs and arms. Denies fever, chills, chest pain, SOB, palpitation, dizziness, weakness, N, V, D , abdominal pain, bladder and bowel problems, leg swelling, No sick contacts or travel. No new changes in medications. Allergies: None Past Medical History: as per HPI Social history: Lives alone at home. No tobacco, ETOH or drug use. Surgical history: hernia repair 2016 - Current Medication List Current Medications: Active Medications Enoxaparin Sodium (Lovenox -) 40 mg SQ DAILY YOUS[facility] Escitalopram Oxalate (Lexapro -) 10 mg PO HS [facility] Cefazolin Sodium/Dextrose (Ancef 2 Gm Premixed Ivpb -) 2 gm in 50 mls @ 100 mls /hr IVPB Q8H [facility] Stop: 08/04/19 07:29 Lactated Ringer's (Lactated Ringers Solution) 1,000 mls @ 75 mls/hr IV ASDIR [facility] Last Admin: 08/03/19 17:30 Dose: 0 mls - Objective Vital Signs: Vital Signs Temperature 97.8 F 08/03/19 17:50 Pulse Rate 84 08/03/19 17:50 Respiratory Rate 18 08/03/19 17:50 Blood Pressure 153/75 08/03/19 17:50 O2 Sat by Pulse Oximetry (%) 98 08/03/19 17:50 Constitutional: Yes: Calm Eyes: Yes: WNL HENT: Yes: WNL Neck: Yes: WNL Cardiovascular: Yes: S1, S2, S4 Respiratory: Yes: WNL Gastrointestinal: Yes: Soft Genitourinary: No: Anuria Breast(s): Yes: WNL Musculoskeletal: Yes: Muscle Pain, Muscle Weakness Extremities: Yes: Cool, Other (left hip fracture repair) Edema: Yes Peripheral Pulses WNL: Yes Integumentary: Yes: Incision Wound/Incision: Yes: Dressing Dry and Intact Neurological: Yes: Confusion, Weakness Psychiatric: Yes: Other (dementia) Labs: CBC, BMP 08/03/19 06:55 08/03/19 06:55 INR, PTT INR 1.24 (0.83-1.09) H 08/03/19 06:55 Abnormal Lab Results 07/31/19 08/03/19 08/03/19 10:06 06:55 06:55 RBC 2.89 L Hgb 9.2 L Hct 27.2 L D RDW 16.4 H Plt Count 125 L D PT with INR 14.70 H INR 1.24 H Anion Gap Creatinine Random Glucose Calcium Hep C Ab Diagnostic >11.0 H 08/03/19 06:55 RBC Hgb Hct RDW Plt Count PT with INR INR Anion Gap 6 L Creatinine 0.5 L Random Glucose 108 H Calcium 8.4 L Hep C Ab Diagnostic - ....Imaging Chest X-ray: Image Reviewed (no acute pathology) EKG: Image Reviewed Problem List - Problems (1) Fall Code(s): W19.XXXA - UNSPECIFIED FALL, INITIAL ENCOUNTER Qualifiers: Encounter type: initial encounter Qualified Code(s): W19.XXXA - Unspecified fall, initial encounter (2) Intertrochanteric fracture of left hip Assessment/Plan: s/p hip repair POD #1 Pain management. F/u with surgeon. Code(s): S72.142A - DISPLACED INTERTROCHANTERIC FRACTURE OF LEFT FEMUR, INIT Qualifiers: Encounter type: initial encounter Fracture type: closed Fracture alignment: displaced Qualified Code(s): S72.142A - Displaced intertrochanteric fracture of left femur, initial encounter for closed fracture (3) Dementia Code(s): F03.90 - UNSPECIFIED DEMENTIA WITHOUT BEHAVIORAL DISTURBANCE (4) DVT (deep venous thrombosis) Assessment/Plan: restart warfarin (? or DOAC) as soon as hemostasis is achieved. Code(s): I82.409 - ACUTE EMBOLISM AND THOMBOS UNSP DEEP VN UNSP LOWER EXTREMITY
[2019-08-03] MEDS: ESCITALOPRAM OXALATE 10 MG TABLET (FP) PO SCH (21:39)
[2019-08-03] MEDS ORDERED: CEFAZOLIN 2 GM/D5W 2 GM/50 ML ML IVPB SCH (23:00)
[2019-08-03] MEDS: CEFAZOLIN 2 GM/D5W 2 GM/50 ML ML IVPB SCH (23:11)
[2019-08-04] MEDS: ACETAMINOPHEN 1000 MG/100 ML VIAL (NON FORMULARY) IVPB PRN ×2 (06:13→19:28)
[2019-08-04] MEDS: CEFAZOLIN 2 GM/D5W 2 GM/50 ML ML IVPB SCH (06:14)
[2019-08-04 08:13] LABS: HEMATOCRIT 24.8 % (32.4-45.2); HEMOGLOBIN 8.4 GM/dL (10.7-15.3); MCH 31.8 pg (25.7-33.7); MCHC 33.8 g/dl (32.0-36.0); MEAN CELL VOLUME 94.1 fl (80-96); MEAN PLT VOLUME 9.8 fl (7.5-11.1); PLATELET COUNT 137 K/MM3 (134-434); RBC 2.63 M/mm3 (3.60-5.2); RDW 16.8 % (11.6-15.6); WHITE BLOOD COUNT 6.5 K/mm3 (4.0-10.0)
[2019-08-04 08:57] LABS: ALBUMIN 2.1 g/dl (3.4-5.0); BILIRUBIN,TOTAL 0.7 mg/dL (0.2-1); BLOOD UREA NITROGEN 19.3 mg/dL (7-18); CALCIUM 8.9 mg/dL (8.5-10.1); CREATININE 0.5 mg/dL (0.55-1.3); MAGNESIUM 2.1 mg/dL (1.8-2.4); POTASSIUM 4.4 mmol/L (3.5-5.1); TOT PROT 5.4 g/dl (6.4-8.2)
--- NOTE | 2019-08-04 09:09 | PN ---
Progress Note (short form) - Note Progress Note: 84 yo F PMH cognitive decline, dementia and depression, DVT on coumadin (?), DNR /DNI s/p left intertrochanteric nail under spinal. No issues overnight per nursing. Patient is awake, alert, poor historian, unaware of recent surgery. Vital Signs Temp 97.9 F 08/04/19 05:57 Pulse 94 H 08/04/19 05:57 Resp 18 08/04/19 05:57 BP 142/74 08/04/19 05:57 Pulse Ox 98 08/03/19 21:00 Intake & Output 08/03/19 08/03/19 08/04/19 11:59 23:59 11:59 Intake Total 10 775 1200 Output Total 300 925 750 Balance -290 -150 450 Intake: IV 10 575 900 Lactated Ringers Solution 900 1,000 ml @ 75 mls/hr IV ASDIR [facility] Rx#:[id number] saline lock 10 IVPB 100 200 Oral 100 100 Output: Urine 300 825 750 Mar 300 800 750 Estimated Blood Loss 100 Other: Voiding Method Indwelling Catheter Indwelling Catheter Bowel Movement No -No apparent anesthesia complications
[2019-08-04] MEDS ORDERED: ENOXAPARIN NA (PORCINE) 40 MG/0.4 ML DISP.SYRIN SQ SCH ×2 (10:00)
--- NOTE | 2019-08-04 11:18 | PN ---
Progress Note, Physician History of Present Illness: Patient is an 84 year old female with organic brain syndrome/dementia, depression and history of DVT on Coumadin who presented with a mechanical fall resulting in left hip fracture. She was seen by Orthopedics and is planned for surgery. She fell going to the bathroom at home. She denies any other injuries. She denies chest pain, SOB or palpitations. She denies paroxysmal nocturnal dyspnea or orthopnea. She denies fever or chills. She denies nausea, vomiting, diarrhea or abdominal pain. She denies headache or lightheadedness - Current Medication List Current Medications: Active Medications Acetaminophen (Ofirmev Injection -) 1,000 mg IVPB Q6H PRN PRN Reason: PAIN LEVEL 6-10 Last Admin: 08/04/19 06:13 Dose: 1,000 mg Enoxaparin Sodium (Lovenox -) 40 mg SQ DAILY [facility] Last Admin: 08/04/19 10:37 Dose: 40 mg Escitalopram Oxalate (Lexapro -) 10 mg PO HS [facility] Last Admin: 08/03/19 21:39 Dose: 10 mg Lactated Ringer's (Lactated Ringers Solution) 1,000 mls @ 75 mls/hr IV ASDIR [facility] Last Admin: 08/03/19 17:30 Dose: 0 mls - Objective Vital Signs: Vital Signs Temperature 98.0 F 08/04/19 09:00 Pulse Rate 90 08/04/19 09:00 Respiratory Rate 16 08/04/19 09:00 Blood Pressure 113/51 L 08/04/19 09:00 O2 Sat by Pulse Oximetry (%) 95 08/04/19 09:00 Eyes: Yes: WNL, Conjunctiva Clear, EOM Intact HENT: Yes: WNL, Atraumatic, Normocephalic Neck: Yes: WNL, Supple, Trachea Midline Cardiovascular: Yes: WNL, Regular Rate and Rhythm Respiratory: Yes: WNL, Regular, CTA Bilaterally Gastrointestinal: Yes: WNL, Normal Bowel Sounds Genitourinary: Yes: WNL Musculoskeletal: Yes: WNL Extremities: Yes: WNL Edema: No Integumentary: Yes: WNL Neurological: Yes: WNL, Alert, Oriented ...Motor Strength: WNL Psychiatric: Yes: WNL Labs: CBC, BMP 08/04/19 07:20 08/04/19 07:30 INR, PTT INR 1.24 (0.83-1.09) H 08/03/19 06:55 Assessment/Plan Problems (1) Fall Code(s): W19.XXXA - UNSPECIFIED FALL, INITIAL ENCOUNTER Qualifiers: Encounter type: initial encounter Qualified Code(s): W19.XXXA - Unspecified fall, initial encounter (2) Intertrochanteric fracture of left hip Code(s): S72.142A - DISPLACED INTERTROCHANTERIC FRACTURE OF LEFT FEMUR, INIT Qualifiers: Encounter type: initial encounter Fracture type: closed Fracture alignment: displaced Qualified Code(s): S72.142A - Displaced intertrochanteric fracture of left femur, initial encounter for closed fracture (3) Dementia Code(s): F03.90 - UNSPECIFIED DEMENTIA WITHOUT BEHAVIORAL DISTURBANCE (4) DVT (deep venous thrombosis) Assessment/Plan: restart warfarin (? or DOAC) as soon as hemostasis is achieved. Code(s): I82.409 - ACUTE EMBOLISM AND THOMBOS UNSP DEEP VN UNSP LOWER EXTREMITY
--- NOTE | 2019-08-04 11:33 | PN ---
Progress Note, LIGHT OUT EXAMINER - Note Progress Note: Selected Entries 08/04/19 08/04/19 08/04/19 02:00 05:57 09:00 Breakfast Temperature 97.9 F 97.9 F 98.0 F 08/04/19 09:37 Breakfast 100% Temperature Laboratory Tests 08/04/19 07:20 WBC 6.5 Pt on chopped diet, tolerating well without difficulty. Pt does not wear her dentures as they are ill fitting and eats some soft food at home. Consider adding to chopped diet, 1-2 soft items. Assist with meals.
--- NOTE | 2019-08-04 14:11 | PN ---
Teaching Attending Note Name of Resident: Clive Landon ATTENDING PHYSICIAN STATEMENT I saw and evaluated the patient. I reviewed the resident's note and discussed the case with the resident. I agree with the resident's findings and plan as documented. SUBJECTIVE: Patient has no complaints. OBJECTIVE: Vital Signs Period Temp Pulse Resp BP Sys/Pierce Pulse Ox Last 24 Hr 97.8 F-98.9 F 72-104 16-22 106-158/51-98 95-100 HEART: S1S2, RRR LUNGS: Clear ABDOMEN: Soft, non-tender, non-distended, normal BS EXTREMITIES: No edema Laboratory Results - last 24 hr 07/31/19 08/04/19 08/04/19 10:06 07:20 07:30 WBC 6.5 RBC 2.63 L Hgb 8.4 L Hct 24.8 L MCV 94.1 MCH 31.8 MCHC 33.8 RDW 16.8 H Plt Count 137 MPV 9.8 Sodium 140 Potassium 4.4 Chloride 107 Carbon Dioxide 27 Anion Gap 6 L BUN 19.3 H Creatinine 0.5 L Est GFR (CKD-EPI)AfAm 104.46 Est GFR (CKD-EPI)NonAf 90.13 Random Glucose 131 H Calcium 8.9 Magnesium 2.1 Total Bilirubin 0.7 AST 18 ALT 18 Alkaline Phosphatase 74 Total Protein 5.4 L Albumin 2.1 L Hep C Ab Diagnostic >11.0 H HCV RNA PCR w/Genot Rflx Hcv not detected Liver Fibrosis Interp Current Medications Generic Name Dose Route Start Last Admin Trade Name Freq PRN Reason Stop Dose Admin Acetaminophen 1,000 mg 08/03/19 19:26 08/04/19 06:13 Ofirmev Injection - IVPB 1,000 mg Q6H PRN Administration PAIN LEVEL 6-10 Enoxaparin Sodium 40 mg 08/04/19 10:00 08/04/19 10:37 Lovenox - SQ 40 mg DAILY YOU[facility] Administration Escitalopram Oxalate 10 mg 08/03/19 22:00 08/03/19 21:39 Lexapro - PO 10 mg HS [facility] Administration Lactated Ringer's 1,000 mls @ 75 mls/hr 08/03/19 16:48 08/03/19 17:30 Lactated Ringers Solution IV 0 mls ASDIR [facility] Administration ASSESSMENT AND PLAN: This is an 84 year old woman with a history of dementia, depression, DVT who presented to the ED after a fall. 1. Intertrochanteric left femur fracture - s/p left femur gamma nail 08/03 - Continue PT - Plan for short term rehab 2. s/p fall 3. Hypokalemia - Improved 4. Recent DVT - Coumadin held for surgery - restart when ok with ortho - Venous dopplers show no evidence of DVT 5. Rhabdomyolysis - Improved 6. Anemia, likely secondary to acute blood loss - 1 unit PRBCs transfused prior to surgery - Continue to monitor hemoglobin 7. Thrombocytopenia - Improved 8. Leukocytosis - Likely reactive - Resolved 9. Progressive supranuclear palsy 10. Depression - Continue Lexapro
[2019-08-04] MEDS ORDERED: WARFARIN NA 3 MG TABLET PO ONE (14:12)
[2019-08-04] MEDS: LACTATED RINGERS SOLUTION 1,000 ML IV SCH (17:01)
--- NOTE | 2019-08-04 18:09 | PN ---
Progress Note (short form) - Note Progress Note: HPI: Denies SOB, CP, palpitations, dizziness/lightheadedness. HPI limited in part due to pt's clinical condition PE: GENERAL: Awake, more alert today, oriented to self and place, NAD HEENT: Nc/AT, FIFI, sclera anicteric, masked facies, MMM LUNGS: CTA b/l. No wheezes, and no crackles. No accessory muscle use. HEART: RRR, normal S1 and S2 without murmur ABDOMEN: Soft, NT/ND, normoactive bowel sounds, no guarding LOWER EXTREMITIES: 2+ DP pulses b/l, warm, well-perfused. No calf tenderness. No peripheral edema. SKIN: Warm, dry, normal turgor, no rashes or lesions noted, normal capillary refill. CBC, BMP 08/03/19 06:55 08/03/19 06:55 Microbiology 07/30/19 13:30 Urine - Urine Mar Urine Culture - Final Streptococcus Viridans Active Medications Acetaminophen (Ofirmev Injection -) 1,000 mg IVPB Q6H PRN PRN Reason: PAIN LEVEL 6-10 Last Admin: 08/04/19 06:13 Dose: 1,000 mg Enoxaparin Sodium (Lovenox -) 40 mg SQ DAILY [facility] Last Admin: 08/04/19 10:37 Dose: 40 mg Escitalopram Oxalate (Lexapro -) 10 mg PO HS [facility] Last Admin: 08/03/19 21:39 Dose: 10 mg Lactated Ringer's (Lactated Ringers Solution) 1,000 mls @ 75 mls/hr IV ASDIR [facility] Last Admin: 08/04/19 17:01 Dose: 75 mls/hr Warfarin Sodium (Coumadin -) 2 mg PO DAILY@1800 [facility] ASSESSMENT/PLAN: L intertrochanteric hip fracture DVT on anticoagulation Acute normocytic anemia Rhabdomyolysis (resolved) Thrombocytopenia (improved) Leukocytosis likely reactive Progressive Supranuclear Palsy Depression --Post-op day 1 of ortho surgery --Pain control: ofirmev on board --Can escalate PRN one time doses if needed --Thrombocytopenia improving --Continue Lexapro home dose --Will trial Carbidopa-Levidopa post-operatively for PSP for alleviation of some symptoms --Physical therapy FEN: Fluids: Discontinue as patient tolerating diet Electrolyte abnormalities: No electrolyte abnormalities Nutrition: Chopped PPX: DVT - SCDs GI - Not indicated Dispo: POD1; physical therapy Case discussed with Dr. Shelly Landon, DO - IM PGY-3
[2019-08-04] MEDS: ESCITALOPRAM OXALATE 10 MG TABLET (FP) PO SCH (21:17)
[2019-08-05] MEDS: ACETAMINOPHEN 1000 MG/100 ML VIAL (NON FORMULARY) IVPB PRN (08:37)
[2019-08-05 08:53] LABS: HEMATOCRIT 24.1 % (32.4-45.2); HEMOGLOBIN 8.1 GM/dL (10.7-15.3); MCH 32.1 pg (25.7-33.7); MCHC 33.5 g/dl (32.0-36.0); MEAN CELL VOLUME 95.6 fl (80-96); MEAN PLT VOLUME 9.6 fl (7.5-11.1); PLATELET COUNT 164 K/MM3 (134-434); RBC 2.52 M/mm3 (3.60-5.2); RDW 16.7 % (11.6-15.6); WHITE BLOOD COUNT 10.1 K/mm3 (4.0-10.0)
[2019-08-05 09:10] LABS: INR 1.54 (0.83-1.09); PROTHROMBIN TIME (PATIENT) 18.3 SEC (9.7-13.0)
[2019-08-05] MEDS: SENNOSIDES 8.6MG TABLET (FP) PO SCH (09:19)
[2019-08-05] MEDS: FERROUS SO4 325 MG TABLET (FP) PO SCH (09:20)
[2019-08-05 09:21] LABS: BLOOD UREA NITROGEN 15.7 mg/dL (7-18); CALCIUM 8.6 mg/dL (8.5-10.1); CREATININE 0.5 mg/dL (0.55-1.3); MAGNESIUM 1.8 mg/dL (1.8-2.4); POTASSIUM 3.7 mmol/L (3.5-5.1)
--- NOTE | 2019-08-05 09:21 | PN ---
Progress Note (short form) - Note Progress Note: Pt seen and examined. She is doing well on POD #2 s'p left Gamma Nail. + min c/ o pain. She states she did not do P.T. yesterday. AVSS H/H fluctuating, today down to 8.4/24.8 LLE Dressing is CDI LLE is NVI + intact active ROM at the left hip, knee, ankle, foot, toes No malangulation, no deformity Imp Doing very well on POD #2 s/p L Gamma Rec DC planning, will transfer to a SNF/rehab/NH facility She should f/u with me as an out patient in 2 weeks
--- NOTE | 2019-08-05 09:30 | PN ---
Teaching Attending Note Name of Resident: Clive Landon ATTENDING PHYSICIAN STATEMENT I saw and evaluated the patient. I reviewed the resident's note and discussed the case with the resident. I agree with the resident's findings and plan as documented. SUBJECTIVE: POD day 2 left common: No new complaint mild left hip pain OBJECTIVE: Vital Signs Period Temp Pulse Resp BP Sys/Pierce Pulse Ox Last 24 Hr 98.0 F-98.9 F 86-100 18-18 108-143/56-95 96 General: Elderly woman, comfortable, not in distress HEENT; mucous membranes moist, no anemia, no jaundice, PERRLA, no nystagmus Neck: No JVD, supple, no bruit, thyroid palpably normal, normal carotid pulsations. Chest: Nontender, clear to auscultation bilaterally CVS: S1-S2 regular no murmur/gallop/rub Abdomen: Nondistended, soft, bowel sounds present. 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 , no gross motor sensory deficit CBC, BMP 08/05/19 08:15 08/05/19 08:15 Active Medications Escitalopram Oxalate (Lexapro -) 10 mg PO HS [facility] Last Admin: 08/04/19 21:17 Dose: 10 mg Ferrous Sulfate (Feosol -) 325 mg PO DAILY [facility] Last Admin: 08/05/19 09:20 Dose: 325 mg Senna (Senna -) 2 tab PO DAILY [facility] Last Admin: 08/05/19 09:19 Dose: 2 tab Warfarin Sodium (Coumadin -) 3 mg PO ONCE@1800 ONE Stop: 08/05/19 18:01 Warfarin Sodium (Coumadin -) 2 mg PO DAILY@1800 [facility] ASSESSMENT AND PLAN:84 year old woman with a history of dementia, depression, recent DVT in May 2019, who presented to the ED after a fall. Underwent left abdominal placement postop day second, anticoagulation resumed. Problem List - Problems (1) Intertrochanteric fracture of left hip Assessment/Plan: Status post nonunion postoperative second, pain control, PT as per orthopedics recommendation, plan to discharge to [facility] for physical therapy. Problems reviewed: Yes Code(s): S72.142A - DISPLACED INTERTROCHANTERIC FRACTURE OF LEFT FEMUR, INIT Qualifiers: Encounter type: initial encounter Fracture type: closed Fracture alignment: displaced Qualified Code(s): S72.142A - Displaced intertrochanteric fracture of left femur, initial encounter for closed fracture (2) DVT (deep venous thrombosis) Assessment/Plan: In May 2019, her anticoagulation resumed at home dose of follow-up INR. Problems reviewed: Yes Code(s): I82.409 - ACUTE EMBOLISM AND THOMBOS UNSP DEEP VN UNSP LOWER EXTREMITY (3) Dementia Assessment/Plan: Chronic negatives Problems reviewed: Yes Code(s): F03.90 - UNSPECIFIED DEMENTIA WITHOUT BEHAVIORAL DISTURBANCE (4) Fall Assessment/Plan: Frequent fall admitted with fracture, PT evaluation and subacute rehab Problems reviewed: Yes Code(s): W19.XXXA - UNSPECIFIED FALL, INITIAL ENCOUNTER Qualifiers: Encounter type: initial encounter Qualified Code(s): W19.XXXA - Unspecified fall, initial encounter (5) Supranuclear paralysis Assessment/Plan: Follow-up neurology recommendations. Problems reviewed: Yes Code(s): G23.1 - PROGRESSIVE SUPRANUCLEAR OPHTHALMOPLEGIA
[2019-08-05] MEDS ORDERED: PATIENT'S OWN MEDICATION (NON-FORMULARY) (Ferrous Sulfate [Ferrous Sulfate] 325 MG) PO SCH (10:00)
--- NOTE | 2019-08-05 16:03 | PN ---
Progress Note (short form) - Note Progress Note: HPI: Denies SOB, CP, palpitations, dizziness/lightheadedness. HPI limited in part due to pt's clinical condition Vital Signs Temperature 98.1 F 08/05/19 14:20 Pulse Rate 96 H 08/05/19 14:20 Respiratory Rate 18 08/05/19 14:20 Blood Pressure 123/53 L 08/05/19 14:20 O2 Sat by Pulse Oximetry (%) 95 08/05/19 09:00 PE: GENERAL: Awake, more alert today, oriented to self and place, NAD HEENT: Nc/AT, FIFI, sclera anicteric, masked facies, MMM LUNGS: CTA b/l. No wheezes, and no crackles. No accessory muscle use. HEART: RRR, normal S1 and S2 without murmur ABDOMEN: Soft, NT/ND, normoactive bowel sounds, no guarding LOWER EXTREMITIES: 2+ DP pulses b/l, warm, well-perfused. No calf tenderness. No peripheral edema. SKIN: Warm, dry, normal turgor, no rashes or lesions noted, normal capillary refill. CBC, BMP 08/05/19 08:15 08/05/19 08:15 Microbiology 07/30/19 13:30 Urine - Urine Mar Urine Culture - Final Streptococcus Viridans Active Medications Escitalopram Oxalate (Lexapro -) 10 mg PO HS [facility] Last Admin: 08/04/19 21:17 Dose: 10 mg Ferrous Sulfate (Feosol -) 325 mg PO DAILY [facility] Last Admin: 08/05/19 09:20 Dose: 325 mg Senna (Senna -) 2 tab PO DAILY [facility] Last Admin: 08/05/19 09:19 Dose: 2 tab Warfarin Sodium (Coumadin -) 3 mg PO ONCE@1800 ONE Stop: 08/05/19 18:01 Warfarin Sodium (Coumadin -) 2 mg PO DAILY@1800 [facility] ASSESSMENT/PLAN: L intertrochanteric hip fracture DVT on anticoagulation Acute normocytic anemia Rhabdomyolysis (resolved) Thrombocytopenia (improved) Leukocytosis likely reactive Progressive Supranuclear Palsy Depression --Post-op day 2 of ortho surgery --Pain control: ofirmev on board --Can escalate: Oxy 5mg q6h PO PRN for breakthrough --Thrombocytopenia improving --Continue Lexapro home dose --Will trial Carbidopa-Levidopa post-operatively for PSP for alleviation of some symptoms --Physical therapy FEN: Fluids: Discontinue as patient tolerating diet Electrolyte abnormalities: No electrolyte abnormalities Nutrition: Chopped PPX: DVT - SCDs GI - Not indicated Dispo: POD2; physical therapy Case discussed with Dr. Sam Landon, DO - IM PGY-3
[2019-08-05] MEDS ORDERED: WARFARIN NA 3 MG TABLET PO ONE (18:00)
[2019-08-05] MEDS ORDERED: WARFARIN NA 2 MG TABLET (UD) PO SCH (18:00)
[2019-08-05] MEDS: ESCITALOPRAM OXALATE 10 MG TABLET (FP) PO SCH (21:30)
--- NOTE | 2019-08-06 07:49 | DS ---
Physical Exam: SUBJECTIVE: No acute events. Pt without any new complaints. Pt to be going to physical rehabilitation today. OBJECTIVE: Vital Signs Period Temp Pulse Resp BP Sys/Pierce Pulse Ox Last 24 Hr 97.8 F-98.9 F 89-98 18-20 115-152/53-92 95-98 PHYSICAL EXAM PE: GENERAL: Awake, alert, NAD, laying in bed HEENT: Nc/AT, FIFI, sclera anicteric, masked facies, MMM LUNGS: CTA b/l. Poor inspiratory effort. No wheezes, and no crackles. No accessory muscle use. HEART: RRR, normal S1 and S2 without murmur ABDOMEN: Soft, NT/ND, normoactive bowel sounds, no guarding MSK: Pain with aROM in L leg. EXTREMITIES: 2+ DP pulses b/l, warm, well-perfused. No calf tenderness. No peripheral edema. SKIN: Warm, dry, no rashes or lesions noted, normal capillary refill. LABS Laboratory Results - last 24 hr 08/02/19 08/05/19 08/05/19 15:30 08:15 08:15 WBC 10.1 H RBC 2.52 L Hgb 8.1 L Hct 24.1 L MCV 95.6 MCH 32.1 MCHC 33.5 RDW 16.7 H Plt Count 164 MPV 9.6 PT with INR 18.30 H INR 1.54 H Sodium Potassium Chloride Carbon Dioxide Anion Gap BUN Creatinine Est GFR (CKD-EPI)AfAm Est GFR (CKD-EPI)NonAf Random Glucose Calcium Magnesium Blood Type O NEGATIVE Antibody Screen Negative Crossmatch See Detail 08/05/19 08:15 WBC RBC Hgb Hct MCV MCH MCHC RDW Plt Count MPV PT with INR INR Sodium 138 Potassium 3.7 Chloride 103 Carbon Dioxide 28 Anion Gap 7 L BUN 15.7 Creatinine 0.5 L Est GFR (CKD-EPI)AfAm 104.46 Est GFR (CKD-EPI)NonAf 90.13 Random Glucose 94 Calcium 8.6 Magnesium 1.8 Blood Type Antibody Screen Crossmatch Active Medications Carbidopa/Levodopa (Sinemet 10/100 -) 1 each PO TID [facility] Escitalopram Oxalate (Lexapro -) 10 mg PO HS [facility] Last Admin: 08/05/19 21:30 Dose: 10 mg Ferrous Sulfate (Feosol -) 325 mg PO DAILY [facility] Last Admin: 08/05/19 09:20 Dose: 325 mg Senna (Senna -) 2 tab PO DAILY [facility] Last Admin: 08/05/19 09:19 Dose: 2 tab Warfarin Sodium (Coumadin -) 2 mg PO DAILY@1800 [facility] Microbiology 07/30/19 13:30 Urine - Urine Mar Urine Culture - Final Streptococcus Viridans IMAGING: Cervical Spine CT w/o contrast: IMPRESSION: Straightening of the cervical spine. The alignment is satisfactory. No gross fracture or subluxation is seen. No jumped facets are identified. Degenerative changes and prominent anterior spondylosis, as described above. Small to moderate size calcified plaques at the common carotid bifurcation, bilaterally. Head CT w/o contrast: IMPRESSION: Moderate volume loss without gross acute intracranial pathology. Correlate clinically to determine further evaluation and follow-up. There is suggestion of mild right periorbital soft tissue swelling. Correlate clinically Hip XR: An AP view the pelvis and single view of the left hip reveals an acute comminuted intertrochanteric left hip fracture with varus deformity. The left femoral head is not dislocated. The other bones are intact. Correlation recommended. Impression: Comminuted left hip intertrochanteric fracture. Femur XR: 2 AP views of the right femur have been submitted. There is loss of bone density with degenerative bone changes. There is no sign of fracture or subluxation and no sign of blastic or lytic changes. The soft tissues are intact. If symptoms persist, further imaging and orthopedic consultation may be of help. CT Facial bones: IMPRESSION: Mild right periorbital and preseptal soft tissue swelling. Correlate clinically to evaluate for or rule out cellulitis. Both eye globes appear unremarkable. No retrobulbar abnormal attenuation is seen. Both orbits are intact without gross evidence of a fracture. 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 HOSPITAL COURSE: Date of Admission:07/30/19 Date of Discharge: 08/06/19 Pt admitted on 07/30/19 due to mechanical fall leading to L hip fracture. Pt's fall was complicated by supratherapeutic INR that peaked at 5.0 and surgery was postponed until pt's INR < 1.4 to ensure safety. Pt received Gamma nail procedure of her L hip with Dr. Frias and was evaluated by hematology and neurology in the pre-operative period. Duplex of lower extremities was performed with results as above. Pt's perioperative course was uncomplicated and it was noted that patient had a drop in H/H post-operatively. There was no bleeding at this time, stool occult was negative, and reticulocyte count was appropriately elevated. Pt's anemia was deemed to be dilutional with exacerbated iron deficiency due to lapse in supplementation during her perioperative period. Pt was restarted on a lower dose of Coumadin when hemostasis had been achieved post-operatively and she was initiated on Carbidopa -Levidopa 10/100mg daily to aide in her progressive supranuclear palsy. Unfortunately pt was recommended to continue physical rehabilitation at a facility due to her post-operative difficulty with movement. Pt is being discharged in stable condition to rehabilitation facility. She is to follow-up with Dr. Frias in 2 weeks for her post-operative follow-up and 3-[address] Gandara's office where she will need an INR and CBC repeat. Pt is to follow with Dr. Salome Weeks in 3 months for assessment of continued AC and with Dr. Davis for her progressive supranuclear palsy. Pt is to continue on Senna 2 tab qdaily and Colace 100mg qdaily. Minutes to complete discharge: 35 Discharge Summary Problems reviewed: Yes Reason For Visit: INTERTROCHANTERIC FRACTURE OF LEFT FEMUR Current Active Problems DVT (deep venous thrombosis) (Acute) Dementia (Acute) Fall (Acute) Intertrochanteric fracture of left hip (Acute) Prolonged INR (Acute) Supranuclear paralysis (Acute) Thrombocytopenia (Acute) Condition: Improved - Instructions Diet, Activity, Other Instructions: You were seen here for your fall and hip fracture. You received a surgery that fixed your hip fracture. Physical therapy came to help you and recommended you go to a physical rehab center to get stronger. MEDICATIONS: Please use Tylenol for pain 650-1gm q6h as needed. Do not exceed 4grams per day as this can negatively impact your liver We reduced your Warfarin dosing to 2mg every night. You will need an INR checked in 1 week with your primary care doctor We have started you on Carbidopa-Levidopa 10/100mg every 8 hours to help with some of your nerve and weakness symptoms. Please give this 2 hours before your iron supplementation as the iron can impact the absorption. Please continue your iron supplementation and Lexapro as you have been prior to the hospitalization. FOLLOW-UP: Please follow-up with Dr. Gandara. You will need a CBC in 3 days to assess your blood counts. Please follow-up with Dr. Frias (the orthopedic surgeon) in 2 weeks for your post-operation follow-up. Please follow-up with Dr. Davis as he can help you with some of your nerve conditions. Please follow-up with Dr. Salome Weeks in 3 months to evaluate your leg clot and if you need blood thinners longer Referrals: Fabio Davis MD [Staff Physician] - 3 Weeks Salome Gibson MD [Staff Physician] - (3 month follow-up for DVT) Brittanie Juárez MD [Staff Physician] - (3-5 days; will need repeat CBC) Brandon Frias MD [Staff Physician] - 2 Weeks [facility]position: [facility] - Home Medications Comprehensive Discharge Medication List: Ambulatory Orders Escitalopram Oxalate [Lexapro -] 10 mg PO HS 05/02/19 Acetaminophen [Tylenol .Regular Strength -] 650 mg PO Q4H PRN tablet 05/06/19 Aspirin [ASA -] 81 mg PO DAILY #0 tab.chew 05/06/19 Ascorbate Calcium [Vitamin C] 500 mg PO DAILY 07/30/19 Ferrous Sulfate 325 mg PO DAILY 07/30/19 Menthol [Bengay Ultra Strength] 1 each TP DAILY 07/30/19 Sennosides [Senna] 2 tab PO DAILY 07/30/19 Warfarin Sodium [Coumadin] 3 mg PO DAILY 07/30/19 Zinc Sulfate [Orazinc] 220 mg PO DAILY 07/30/19 This patient is new to me today: No Emergency Visit: Yes ED Registration Date: 07/30/19 Care time: The patient presented to the Emergency Department on the above date and was hospitalized for further evaluation of their emergent condition. Critical Care patient: No - Discharge Referral Referred to [facility] No ATTENDING PHYSICIAN STATEMENT I saw and evaluated the patient. I reviewed the resident's note and discussed the case with the resident. I agree with the resident's findings and plan as documented. SUBJECTIVE: OBJECTIVE: ASSESSMENT AND PLAN:
--- NOTE | 2019-08-06 07:52 | PN ---
Teaching Attending Note Name of Resident: Clive Landon ATTENDING PHYSICIAN STATEMENT I saw and evaluated the patient. I reviewed the resident's note and discussed the case with the resident. I agree with the resident's findings and plan as documented. SUBJECTIVE: No new complaints OBJECTIVE: Vital Signs Temperature 98.9 F 08/06/19 06:00 Pulse Rate 89 08/06/19 06:00 Respiratory Rate 18 08/06/19 06:00 Blood Pressure 152/72 08/06/19 06:00 O2 Sat by Pulse Oximetry (%) 98 08/05/19 21:00 General: Elderly woman, comfortable, not in distress HEENT; mucous membranes moist, no anemia, no jaundice, PERRLA, no nystagmus Neck: No JVD, supple, no bruit, thyroid palpably normal, normal carotid pulsations. Chest: Nontender, clear to auscultation bilaterally CVS: S1-S2 regular no murmur/gallop/rub Abdomen: Nondistended, soft, bowel sounds present. 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 , no gross motor sensory deficit Active Medications Escitalopram Oxalate (Lexapro -) 10 mg PO HS [facility] Last Admin: 08/04/19 21:17 Dose: 10 mg Ferrous Sulfate (Feosol -) 325 mg PO DAILY [facility] Last Admin: 08/05/19 09:20 Dose: 325 mg Senna (Senna -) 2 tab PO DAILY [facility] Last Admin: 08/05/19 09:19 Dose: 2 tab Warfarin Sodium (Coumadin -) 3 mg PO ONCE@1800 ONE Stop: 08/05/19 18:01 Warfarin Sodium (Coumadin -) 2 mg PO DAILY@1800 [facility] ASSESSMENT AND PLAN:84 year old woman with a history of dementia, depression, recent DVT in May 2019, who presented to the ED after a fall. Underwent left abdominal placement postop day second, anticoagulation resumed. Patient can be discharged to SNF for rehab once cleared by orthopedics Problem List - Problems (1) Intertrochanteric fracture of left hip Assessment/Plan: Status POD 3, pain control, PT as per orthopedics recommendation, plan to discharge to [facility] for physical therapy. Code(s): S72.142A - DISPLACED INTERTROCHANTERIC FRACTURE OF LEFT FEMUR, INIT Qualifiers: Encounter type: initial encounter Fracture type: closed Fracture alignment: displaced Qualified Code(s): S72.142A - Displaced intertrochanteric fracture of left femur, initial encounter for closed fracture (2) DVT (deep venous thrombosis) Assessment/Plan: In May 2019, her anticoagulation resumed at home dose of follow-up INR. Code(s): I82.409 - ACUTE EMBOLISM AND THOMBOS UNSP DEEP VN UNSP LOWER EXTREMITY (3) Dementia Assessment/Plan: Chronic negatives Code(s): F03.90 - UNSPECIFIED DEMENTIA WITHOUT BEHAVIORAL DISTURBANCE (4) Fall Assessment/Plan: Frequent fall admitted with fracture, PT evaluation and subacute rehab Code(s): W19.XXXA - UNSPECIFIED FALL, INITIAL ENCOUNTER Qualifiers: Encounter type: initial encounter Qualified Code(s): W19.XXXA - Unspecified fall, initial encounter (5) Supranuclear paralysis Assessment/Plan: Follow-up neurology recommendations. Code(s): G23.1 - PROGRESSIVE SUPRANUCLEAR OPHTHALMOPLEGIA
[2019-08-06 08:10] LABS: HEMATOCRIT 23.4 % (32.4-45.2); HEMOGLOBIN 7.9 GM/dL (10.7-15.3); MCHC 33.6 g/dl (32.0-36.0); MEAN CELL VOLUME 95.3 fl (80-96); MEAN PLT VOLUME 9.5 fl (7.5-11.1); PLATELET COUNT 176 K/MM3 (134-434); RBC 2.46 M/mm3 (3.60-5.2); RDW 16.6 % (11.6-15.6); WHITE BLOOD COUNT 7.4 K/mm3 (4.0-10.0)
[2019-08-06 08:50] LABS: BLOOD UREA NITROGEN 12.5 mg/dL (7-18); CALCIUM 8.4 mg/dL (8.5-10.1); CREATININE 0.4 mg/dL (0.55-1.3); POTASSIUM 3.7 mmol/L (3.5-5.1)
[2019-08-06 09:43] LABS: INR 1.88 (0.83-1.09); PROTHROMBIN TIME (PATIENT) 22.3 SEC (9.7-13.0)
[2019-08-06] MEDS: FERROUS SO4 325 MG TABLET (FP) PO SCH (09:59)
[2019-08-06] MEDS: SENNOSIDES 8.6MG TABLET (FP) PO SCH (09:59)
--- NOTE | 2019-08-06 10:10 | PN ---
Progress Note (short form) - Note Progress Note: Ortho Pt seen and examined s/p left IM gamma nail Selected Entries 08/06/19 09:57 Temperature 98.5 F Pulse Rate 85 Respiratory 18 Rate Blood Pressure 140/65 Laboratory Tests 08/06/19 07:41 WBC 7.4 Hgb 7.9 L Hct 23.4 L Plt Count 176 dressing with saturation, calf soft, nt nvi a/p transfuse 1 unit PT wbat dvt ppx pain control ok to d/c after unit
[2019-08-06] MEDS ORDERED: CARBIDOPA/LEVODOPA 10/100 TABLET (FP) PO SCH (14:00)
[2019-08-06 15:57] VITALS: BP 130/65; PULSE 84; TEMP 98
[2019-08-06] MEDS ORDERED: PT OWN MED DRAWER 7, Y5N ONE ×2 (15:59→16:13)
[2019-08-06] MEDS ORDERED: WARFARIN NA 2 MG TABLET (UD) PO SCH (18:00)
== END 2019-08-06 21:00 | DRG 481 ==
LOC: JER 09:50 → JERBED 13:08 → J6S 14:51
PROVIDERS: ADMIT Internal Medicine; ATTEND Internal Medicine
PROC: 30233N1 Transfusion of Nonautologous Red Blood Cells into Peripheral Vein, Percutaneous Approach (ICD-10-PCS; 2019-08-02)
PROC: 0QS704Z Reposition Left Upper Femur with Internal Fixation Device, Open Approach (ICD-10-PCS; principal; 2019-08-03 16:00)
DX: S72.142A Displaced intertrochanteric fracture of left femur, initial encounter for closed fracture (principal); M62.82 Rhabdomyolysis; N39.0 Urinary tract infection, site not specified; G23.1 Progressive supranuclear ophthalmoplegia [Steele-Richardson-Olszewski]; D62 Acute posthemorrhagic anemia; F32.9 Major depressive disorder, single episode, unspecified; F03.90 Unspecified dementia, unspecified severity, without behavioral disturbance, psychotic disturbance, mood disturbance, and anxiety; Z86.718 Personal history of other venous thrombosis and embolism; Z79.01 Long term (current) use of anticoagulants; Z87.891 Personal history of nicotine dependence; W19.XXXA Unspecified fall, initial encounter; Y93.9 Activity, unspecified; Y92.89 Other specified places as the place of occurrence of the external cause; Y99.8 Other external cause status; D69.6 Thrombocytopenia, unspecified; R79.1 Abnormal coagulation profile; R13.10 Dysphagia, unspecified; R47.1 Dysarthria and anarthria; E66.3 Overweight; Z68.25 Body mass index [BMI] 25.0-25.9, adult; M81.0 Age-related osteoporosis without current pathological fracture; R62.7 Adult failure to thrive; D64.9 Anemia, unspecified; E87.6 Hypokalemia
CPT/HCPCS: 36415; 36430; 36511; 70450-TC; 70486-TC; 71045-TC-FY; 72125-TC; 73523-TC-FY; 73552-TC-RT-FY; 76000-TC-FY; 80048; 80053; 81003; 82140; 82272; 82550; 82553; 82607; 82746; 83036; 83735; 84100; 84207; 84443; 84484; 85025; 85027; 85044; 85610; 85651; 85730; 86038; 86140; 86431; 86593; 86803; 86850; 86900; 86901; 86922; 87086; 87389; 93005; 93010; 93306-TC; 93970-TC; 94760; 97116-GP; 97162-GP; 99284-25; J0131; P9038; P9058